=== PATIENT | male | born 1950 | race Caucasian/White ===

== ENCOUNTER 2018-12-18 09:52 | Inpatient (IN) | payer OTHER ==
[~2018-12-18] VITALS: Ht 177.8 cm; Wt 87.3 kg
[2018-12-18] MEDS ORDERED: SODIUM CHLORIDE 0.9% 1000ML 1,000 ML IV STA (10:09)
[2018-12-18 10:33] LABS: BASOPHILS # (AUTO) 0.1 (0.0-0.1); BASOPHILS % 0.7 % (0.0-1.0); HEMATOCRIT 21.7 % (38.2-49.6); LYMPHOCYTES # (AUTO) 0.7 (1.0-3.2); LYMPHOCYTES % 9.5 % (18.0-39.1); MEAN CORPUSCULAR HEMOGLOBIN 20.5 pg (28-32); MEAN CORPUSCULAR HGB CONC 27.6 g/dL (31-35); MEAN CORPUSCULAR VOLUME 74.1 fL (81-99); MONOCYTES # (AUTO) 0.3 (0.2-0.8); MONOCYTES % 3.9 % (4.4-11.3); NEUTROPHILS # (AUTO) 6.4 (2.1-6.9); NEUTROPHILS % 84.8 % (38.7-80.0); PLATELET COUNT 240 x10e3/uL (140-360); RED BLOOD COUNT 2.93 x10e6/uL (4.3-5.7); RED CELL DISTRIBUTION WIDTH 17.2 % (11.7-14.4)
[2018-12-18 10:34] LABS: INR 1.47; PROTHROMBIN TIME 18.4 seconds (11.9-14.5)
[2018-12-18 10:35] LABS: PARTIAL THROMBOPLASTIN TIME 30.3 seconds (23.8-35.5)
[2018-12-18 10:55] LABS: ALANINE AMINOTRANSFERASE 12 IU/L (0-55); ALBUMIN 3.1 g/dL (3.5-5.0); ALBUMIN/GLOBULIN RATIO 0.9 (0.8-2.0); ALKALINE PHOSPHATASE 68 IU/L (40-150); ANION GAP 11.6 mmol/L (8-16); BLOOD UREA NITROGEN 19 mg/dL (7-26); BUN/CREATININE RATIO 13 (6-25); CALCIUM 8.6 mg/dL (8.4-10.2); CARBON DIOXIDE 23 mmol/L (22-29); CHLORIDE 105 mmol/L (98-107); CREATINE KINASE 129 IU/L (30-200); CREATININE, SERUM 1.47 mg/dL (0.72-1.25); EST GLOMERULAR FILTRATION RATE 48 ML/MIN (60-); GLUCOSE 103 mg/dL (74-118); POTASSIUM 4.6 mmol/L (3.5-5.1); SODIUM 135 mmol/L (136-145)
--- NOTE | 2018-12-18 10:58 | Diagnostic Imaging Report ---
History:Fall, syncope Comparison studies:None Technique: Axial images were obtained from the skull base to the vertex. Coronal and sagittal images reconstructed from the axial data. Intravenous contrast: None Dose modulation, iterative reconstruction, and/or weight based adjustment of the mA/kV was utilized to reduce the radiation dose to as low as reasonably achievable. Findings: Scalp/skull: Right frontal scalp thickening, no fracture. Extra-axial spaces: No masses. No fluid collections. Brain sulci: Mildly prominent. Ventricles: Mild compensatory dilatation. No hydrocephalus. Parenchyma: Cortical-based hypodensity at the right inferior paracentral lobule, right insula, left inferior occipital temporal gyrus and right anterior lingular gyrus with associated volume loss, secondary to remote insult. Few hypodensities in the supratentorial white matter are small vessel ischemic changes. No masses, hemorrhage, acute or chronic cortical vascular insults. Sellar/suprasellar region: No abnormalities. Craniocervical junction: Patent foramen magnum. No Chiari one malformation. Incidental findings: Atherosclerotic calcifications in the carotid siphons . Impression: No acute intracranial abnormalities. Right frontal scalp thickening, could related to small soft tissue contusion. Chronic findings: 1. Chronic infarct in the right MCA and bilateral BELT WEAVER distribution as described above. 2. Mild generalized volume loss. 3. Mild supratentorial white matter small vessel ischemic changes. Signed by: DR Dariel Esparza M.D. on 12/18/2018 10:55 AM
--- NOTE | 2018-12-18 11:02 | Diagnostic Imaging Report ---
History: Fall, syncope Comparison studies: None Technique: Axial images were obtained through the cervical region.. Coronal and sagittal images reconstructed from the axial data.. Intravenous contrast: None Dose modulation, iterative reconstruction, and/or weight based adjustment of the mA/kV was utilized to reduce the radiation dose to as low as reasonably achievable. Findings: Fractures: None. Soft tissues: No gross paraspinal abnormalities. Atherosclerotic calcifications of the carotid bulbs Atlantoaxial articulation: Degenerative changes without acute abnormality. Alignment: Normal lordosis. No scoliosis. Cervicomedullary junction: No abnormalities. The foramen magnum is patent. Vertebrae: No infection or neoplasm. Degenerative changes: Mild degenerative right foraminal narrowing at C2-3 and mild degenerative bilateral foraminal narrowing at C5-6. Spinal canal grossly patent. IMPRESSION: 1. No acute cervical spine abnormalities. 2. Cannot exclude ligament, spinal cord and or vascular abnormalities on the basis of this examination. Signed by: DR Dariel Esparza M.D. on 12/18/2018 10:58 AM
[2018-12-18 11:16] LABS: THYROID STIMULATING HORMONE 1.246 uIU/mL (0.350-4.940)
[2018-12-18 11:48] LABS: COLOR,URINE YELLOW (YELLOW)
[2018-12-18 11:49] LABS: BILIRUBIN,URINE NEGATIVE (NEGATIVE); CLARITY,URINE CLEAR (CLEAR); KETONES,URINE NEGATIVE (NEGATIVE); LEUKOCYTE ESTERASE ,URINE NEGATIVE (NEGATIVE); NITRITE,URINE NEGATIVE (NEGATIVE); PROTEIN,URINE DIPSTICK NEGATIVE (NEGATIVE); URINE UROBILINOGEN 0.2 mg/dL (0.2 - 1)
[2018-12-18] MEDS ORDERED: PANTOPRAZOLE 40 MG 10ML VIAL IV ONE (11:49)
[2018-12-18 11:54] LABS: EPITHELIAL CELLS,URINE RARE /LPF
--- OUTSIDE RECORDS SUMMARY | 2018-12-18 11:59 | XMS REPORT ---
Author [facility] Address Unknown Phone Unavailable Care Team Providers Care Oil Well Logger Name Role Phone Vijay DANIELS Unavailable Unavailable Problems This patient has no known problems. Allergies, Adverse Reactions, Alerts This patient has no known allergies or adverse reactions. Medications This patient has no known medications. Results Test Description Test Time Test Comments Text Results Atomic Results Result Comments CT CERVICAL SPINE WO 2018-12-18 10:55:00 [place] [address] Patient Name: DAYAN HAGAN MR #: [id number] : 1950 Age/Sex: 68/M Req #: [id number] Adm Physician: Ordered by: JOSE DANIELS MD Report #: [id number] Location: ER Room/Bed: Procedure: [id number] CT/CT CERVICAL SPINE WO Exam Date: 12/18/18 Exam Time: 1000 REPORT STATUS: Signed History: Fall, syncope Comparison studies: None Technique: Axial images were obtained through the cervical region.. Coronal and sagittal images reconstructed from the axial data.. Intravenous contrast: None Dose modulation, iterative reconstruction, and/or weight based adjustment of the mA/kV was utilized to reduce the radiation dose to as low as reasonably achievable. Findings: Fractures: None. Soft tissues: No gross paraspinal abnormalities. Atherosclerotic calcifications of the carotid bulbs Atlantoaxial articulation: Degenerative changes without acute abnormality. Alignment: Normal lordosis. No scoliosis. Cervicomedullary junction: No abnormalities. The foramen magnum is patent. Vertebrae: No infection or neoplasm. Degenerative changes: Mild degenerative right foraminal narrowing at C2-3 and mild degenerative bilateral foraminal narrowing at C5-6. Spinal canal grossly patent. IMPRESSION: 1. No acute cervical spine abnormalities. 2. Cannot exclude ligament, spinal cord and or vascular abnormalities on the basis of this examination. Signed by: DR Dariel Esparza M.D. on 12/18/2018 10:58 AM Dictated By: DARIEL GOMEZ MD 105 Transcribed By: MIN on 12/18/18 105 COPY TO: JOSE DANIELS MD CT BRAIN WO 2018-12-18 10:48:00 [place] [address] Patient Name: DAYAN HAGAN MR #: [id number] : 1950 Age/Sex: 68/M Req #: [id number] Adm Physician: Ordered by: JOSE DANIELS MD Report #: [id number] Location: ER Room/Bed: Procedure: [id number] CT/CT BRAIN WO Exam Date: 12/18/18 Exam Time: 1000 REPORT STATUS: Signed History:Fall, syncope Comparison studies:None Technique : Axial images were obtained from the skull base to the vertex. Coronal and sagittal images reconstructed from the axial data. Intravenous contrast: None Dose modulation, iterative reconstruction, and/or weight based adjustment of the mA/kV was utilized to reduce the radiation dose to as low as reasonably achievable. Findings: Scalp/skull: Right frontal scalp thickening, no fracture. Extra-axial spaces: No masses. No fluid collections. Brain sulci: Mildly prominent. Ventricles: Mild compensatory dilatation. No hydrocephalus. Parenchyma: Cortical-based hypodensity at the right inferior paracentral lobule, right insula, left inferior occipital temporal gyrus and right anterior lingular gyrus with associated volume loss, secondary to remote insult. Few hypodensities in the supratentorial white matter are small vessel ischemic changes. No masses, hemorrhage, acute or chronic cortical vascular insults. Sellar/suprasellar region: No abnormalities. Craniocervical junction: Patent foramen magnum. No Chiari one malformation. Incidental findings: Atherosclerotic calcifications in the carotid siphons . Impression: No acute intracranial abnormalities. Right frontal scalp thickening, could related to small soft tissue contusion. Chronic findings: 1. Chronic infarct in the right MCA and bilateral INFORMATION TECH distribution as described above. 2. Mild generalized volume loss. 3. Mild supratentorial white matter small vessel ischemic changes. Signed by: DR Dariel Esparza M.D. on 12/18/2018 10:55 AM Dictated By: DARIEL GOMEZ MD [id number] Transcribed By: MIN on 12/18/18 1057 COPY TO: JOSE DANIELS MD
[2018-12-18] MEDS ORDERED: ONDANSETRON HCL INJ 2MG/ML 2ML 2 MG/ML VIAL IV PRN (12:00)
[2018-12-18 12:50] VITALS: BP 173/77
--- NOTE | 2018-12-18 12:54 | Diagnostic Imaging Report ---
EXAM: CHEST 2 VIEWS DATE: 12/18/2018 10:09 AM INDICATION:Shortness of breath, syncope COMPARISON: None FINDINGS: Lines and tubes: None Heart size normal. No focal pulmonary opacity, pleural effusion or pneumothorax. The lungs are hyperinflated. Mild scarring or atelectasis at the lung bases. Upper abdomen unremarkable. A moderate-sized hiatus hernia is noted behind the heart. No acute bony abnormality. IMPRESSION: No evidence for acute disease. Hyperinflation of the lungs may reflect chronic or reactive airway disorder. Signed by: Dr. Simone Brandt M.D. on 12/18/2018 12:51 PM
[2018-12-18] MEDS ORDERED: WARFARIN SODIUM10 MG PO (14:05)
[2018-12-18] MEDS ORDERED: PRAVASTATIN SOD40 MG PO (14:05)
--- NOTE | 2018-12-18 14:06 | NUR ---
HOME MEDS REVIEWED NOW. BROUGHT CONTAINERS FROM HOME
[2018-12-18] MEDS ORDERED: SODIUM CHLORIDE 0.9% 250ML 500 ML ONE (14:12)
--- NOTE | 2018-12-18 14:30 | NUR ---
blood transfusion now started. verified with erick rascon at bedside
--- NOTE | 2018-12-18 15:14 | NUR ---
spoke to md gorman regarding pt c/o pain to left ankle . new orders received
[2018-12-18] MEDS: ACETAMINOPHEN/CODEINE 300MG - 30MG TAB PO PRN ×2 (15:39→21:52)
[2018-12-18 15:54] VITALS: BP 133/63
--- NOTE | 2018-12-18 18:20 | NUR ---
2ND UNIT OF BLOOD JUST STARTED . VERIFIED WITH HERLINDA VORA AT BEDSIDE.
--- NOTE | 2018-12-18 19:10 | NUR ---
Report taken from erick Maloney.walking rounds done.blood is transfusing.stable condition.
[2018-12-18 20:00] VITALS: BP 136/71
--- NOTE | 2018-12-18 20:10 | NUR ---
PT IS GETTING BLOOD TRANSFUSION.SO CAN NOT DRAW BLOOD FOR CARDIAC MARKERS.
[2018-12-18 21:00] VITALS: BP 130/69
--- NOTE | 2018-12-18 21:00 | NUR ---
Assessment done.no resp.distress.v/s stable.blood is transfusing.ambulates.voided.bed locked and in lowest position. phone and call light within reach.instructed to call for assistance as needed.
--- NOTE | 2018-12-18 21:40 | NUR ---
Blood transfusion completed.pt tolerated well.no reaction noted.stable condition.
[2018-12-19] VITALS (8 sets, daily range): BP systolic 107–134; BP diastolic 59–70
[2018-12-19 00:28] LABS: HEMATOCRIT 28.9 % (38.2-49.6); HEMOGLOBIN 8.1 g/dL (14.0-18.0)
--- NOTE | 2018-12-19 00:28 | NUR ---
Blood drawn and sent to the lab .patient is tolerated well.but pt is unhappy with the lab works in the night.
--- NOTE | 2018-12-19 00:32 | Consultation ---
DATE OF CONSULTATION: 12/18/2018 HISTORY OF PRESENT ILLNESS: This is a 68 years old gentleman, who apparently was admitted to the hospital and presented to the hospital because of significant iron deficiency anemia and feeling weak and also he was having some syncopal episodes. He was found to have a hemoglobin of 6.0 with a MCV of 74 and he denies any abdominal pain, nausea, or vomiting. He had a CT of the head, which shows a chronic infarct of the right MCA and otherwise is unremarkable. OTHER MEDICAL PROBLEM: Significant for history of CVA and history of DVT. Apparently because of that reason, he was on Coumadin at home. ALLERGIES: HIS ALLERGIES ARE NONE. SOCIAL HISTORY: Denies alcohol use. FAMILY HISTORY: Noncontributory. REVIEW OF SYSTEMS: Denies any chest pain at this point. Denies any shortness of breath. Denies any dysphagia, odynophagia. Denies any dysuria, hematuria, or any kind of syncopal episode. PHYSICAL EXAMINATION: GENERAL: The patient is awake, alert, appears to be stable, not in acute distress at this point. VITAL SIGNS: Afebrile currently with stable vital signs. HEENT: Head is normocephalic, atraumatic. Sclerae are anicteric. NECK: Supple. HEART: Regular. ABDOMEN: Soft. There is no distension at this point. It is nontender. EXTREMITIES: There is no clubbing Muscular is supple heart is regular. ABDOMEN: Soft. There is tenderness point is nontender. EXTREMITIES: There is no clubbing. LAB VALUES: PT of 18.4, INR 1.47, , and LFTs are normal, hemoglobin is 6, hematocrit 21.7 with MCV of 74.1. IMPRESSION: 1. Severe iron deficiency anemia, rule out possibility of occult GI blood loss. Apparently, his last colonoscopy was about 10 years ago. 2. History of deep venous thrombosis and history of cerebrovascular accident, and hold anticoagulation for now. Transfuse bright red blood cells. We will do EGD and colonoscopy later this week when the PT is normalized, possibly on . Omid Pruitt MD DHAugie/MODL /[id number] cc: Zana Cook MD
[2018-12-19 00:44] LABS: CREATINE KINASE 155 IU/L (30-200)
--- NOTE | 2018-12-19 06:49 | NUR ---
Report given to the oncoming rn.walking rounds done.stable condition.
--- NOTE | 2018-12-19 07:00 | NUR ---
Report given to the oncoming rn.walking rounds done.stable condition.
[2018-12-19 07:13] LABS: BASOPHILS % 0.7 % (0.0-1.0); EOSINOPHILS # (AUTO) 0.2 (0.0-0.4); EOSINOPHILS % 2.9 % (0.0-6.0); HEMATOCRIT 27.1 % (38.2-49.6); HEMOGLOBIN 7.8 g/dL (14.0-18.0); INR 1.54; LYMPHOCYTES # (AUTO) 1.4 (1.0-3.2); LYMPHOCYTES % 22.8 % (18.0-39.1); MEAN CORPUSCULAR HEMOGLOBIN 22.5 pg (28-32); MEAN CORPUSCULAR HGB CONC 28.8 g/dL (31-35); MEAN CORPUSCULAR VOLUME 78.3 fL (81-99); MONOCYTES # (AUTO) 0.5 (0.2-0.8); MONOCYTES % 8.3 % (4.4-11.3); NEUTROPHILS # (AUTO) 3.8 (2.1-6.9); NEUTROPHILS % 64.6 % (38.7-80.0); PLATELET COUNT 162 x10e3/uL (140-360); PROTHROMBIN TIME 19.1 seconds (11.9-14.5); RED BLOOD COUNT 3.46 x10e6/uL (4.3-5.7)
[2018-12-19 07:24] LABS: CREATINE KINASE MB 1.1 ng/mL (0-5.0)
[2018-12-19 07:42] LABS: ALBUMIN 2.6 g/dL (3.5-5.0); ALBUMIN/GLOBULIN RATIO 0.9 (0.8-2.0); ANION GAP 11.1 mmol/L (8-16); CALCIUM 8.2 mg/dL (8.4-10.2); CHOL/HDL RATIO 2.2 (3.9-4.7); CREATININE, SERUM 1.35 mg/dL (0.72-1.25); POTASSIUM 5.1 mmol/L (3.5-5.1)
[2018-12-19] MEDS: PANTOPRAZOLE 40 MG 10ML VIAL IV SCH (08:41)
[2018-12-19 09:54] LABS: THYROID STIMULATING HORMONE 2.071 uIU/mL (0.350-4.940)
[2018-12-19 10:11] LABS: FOLATE 5.1 ng/mL (7.0-15.4)
--- NOTE | 2018-12-19 10:16 | NUR ---
PT OFF UNIT FOR CT VIA WHEEL CHAIR
--- NOTE | 2018-12-19 11:08 | NUR ---
WOUND CARE CONSULTATION - INITIAL EVALUATION Patient admitted from home to ER for Anemia, Dyspnea, Syncope with Fall. WBC5.93 HGB7.8 HCT27.1 GLU84 Alb 2.6 Wound Care Consulted for Left Medial Ankle Ulcer Evaluation PATIENT VISIT: Patient ambulatory, AAOX4, Calm and Cooperative. Presents with ulceration to left medial malleolus that is recurrent, " it opens and it resurfaces from time to time" Spouse at bedside. Ulceration Irregular, partial thickness, very tender to touch and describes sporadic pain as lightning bolts. Area does not appear to be infected. Scabbed ulceration with periwound pink scarring 1cm. Wound size 3.5x2.5x0.4cm Dry wound bed granulated 100%. Strong Pedal pulses. No Swelling No Redness. Ramesh Score 21 Conservative PUP Active IMPRESSION: -Left Medial Malleolus- Venous Stasis Ulcer ( Non-Healing/ Recurrent) Present On Admission. RECOMMENDATION: 1. Left Medial Malleolus- Venous Stasis Ulcer: - Gently cleanse with NS and 4x4 gauze - Apply Venelex and Cover with [employer] then Cover with 4x4 gauze and Secure with Light Kerlix Wrap Daily. 2. Continue Conservative PUP. Thank you for consulting with Wound Care. Addendum: 12/19/18 at 1119 by José Miguel Bhardwaj RN Amended: Links added.
--- NOTE | 2018-12-19 11:28 | Consultation ---
DATE OF CONSULTATION: 12/19/2018 Cardiology Consultation CONSULTING PHYSICIAN: Carlos Brizuela MD, interventional Cardiology. REASON FOR CONSULTATION: Syncope. HISTORY OF PRESENT ILLNESS: Mr. Hale is a 68-year-old man with history of DVT and CVA for which he has been reportedly on Coumadin long-term for various decades. He recently lost his primary care provider and had not re-established care. He has continued however to take his Coumadin on his own without any INR checks. He has reportedly had several spells this last couple of weeks while standing or walking. He feels short of breath, lightheaded and this has followed at times with loss of consciousness and falls. Most recent episode occurred yesterday while patient was ambulating. Initial hemoglobin on arrival was 6. His arrival INR however was 1.4. His serial cardiac enzymes were negative. BNP was 45. He denies any chest pain. EKG reveals normal sinus rhythm, heart rate 95, QRS of 88, QT corrected of 429, otherwise normal EKG with minor nonspecific repolarization abnormality. REVIEW OF SYSTEMS: A 12-system review is negative except for as noted above. The patient denies any gross bleeding. PAST MEDICAL HISTORY: Reportedly dyslipidemia for which he has been on pravastatin in addition to CVA and history of DVT. ALLERGIES: NO KNOWN DRUG ALLERGIES. SOCIAL HISTORY: No alcohol use. Former smoker. No drug use. FAMILY HISTORY: Noncontributory. PHYSICAL EXAMINATION: VITAL SIGNS: Temperature 98.2, heart rate 67, respiratory rate 16, blood pressure 127/67, O2 saturation 95% on room air. GENERAL: In no acute distress, alert. HEENT: Abrasions to right face, facial aspect and mild periorbital edema. NECK: No JVD. No carotid bruits. CHEST: Clear to auscultation. CARDIOVASCULAR: Regular rate and rhythm. Normal S1, S2. No S3, no S4. No murmurs, no rubs. ABDOMEN: Soft, nontender. EXTREMITIES: Trace edema. Warm distal extremities. CARDIOVASCULAR MEDICATIONS: Reviewed. Protonix 40 mg daily IV. LABORATORY STUDIES: Reviewed. Sodium 136, potassium 5.1, chloride 107, bicarbonate 23, BUN 16, creatinine 1.35, glucose 84, calcium 8.2. Negative cardiac enzymes x3. AST 9, ALT 58, total bilirubin is 14. Transferrin 312, percent saturation is 4, iron level is low at 19. TSH is 2.02. LDL is 32, HDL is 38, triglycerides 70. Most recent INR 1.5. Most recent hemoglobin 7.8, white blood count 5.9, platelet 162. The patient is status post [address] head chronic infarct of the right MCA and bilateral DEPUTY CORONER distribution as described. General generalized volume loss, supratentorial white matter small vessel ischemic changes noted. Cervical spine CT showed no acute cervical spine abnormalities, cannot exclude ligament, spinal cord or vascular abnormalities on the basis of this exam. Chest x-ray, no evidence of acute disease, hyperinflation of lungs, may reflect chronic or reactive airway disorder. ASSESSMENT: 1. Symptomatic anemia. 2. Chronic anticoagulation with warfarin with no regular recent followup. 3. History of DVT reported. 4. History of cerebrovascular accident with above-noted CT findings. 5. Dyslipidemia. 6. Chest x-ray findings raising concern of underlying COPD in the patient with history of smoking. RECOMMENDATIONS: 1. Agree with GI evaluation. 2. Obtain echocardiogram. 3. Please keep on telemetry so far remains in sinus rhythm. The patient does not report a prior history of atrial fibrillation or atrial flutter. However, multifocal old infarcts raise some concern. Obtain echo and carotid ultrasounds. 4. Fecal occult blood test advised. Carlos Brizuela MD AFBalbir/ROSARIO /[id number]
--- NOTE | 2018-12-19 11:40 | Diagnostic Imaging Report ---
TECHNIQUE: CT of the chest, abdomen and pelvis without intravenous contrast. INDICATION: Anemia, dyspnea, status post fall. COMPARISON: Chest radiograph 12/18/2018. TECHNIQUE: Chest, Abdomen and pelvis were scanned utilizing a multidetector helical scanner from the thoracic inlet to the pubic symphysis without administration of IV or oral contrast. Coronal and sagittal reformations were obtained. Routine protocol was performed. Lack of intravenous contrast limits sensitivity for evaluation of vascular or visceral structures. COMPLICATIONS: None RADIATION DOSE: Total DLP: 830.4 mGy*cm Dose modulation, iterative reconstruction, and/or weight based adjustment of the mA/kV was utilized to reduce the radiation dose to as low as reasonably achievable. FINDINGS: LINES AND TUBES: None LUNGS AND AIRWAYS: The central airways are patent. There are mild centrilobular and paraseptal emphysematous changes. There are mild bilateral peripheral interstitial opacities, most pronounced in the lower lobes. There is a 3 mm solid subpleural nodule in the right middle lobe on series 4, image 94. There is a 3 mm likely partially calcified solid nodule in the right lower lobe on image 59. There is a rounded consolidative opacity measuring up to 3.9 cm in the right lower lobe which distorting the adjacent pleural fat, for example on series 2, image 50. There is associated volume loss. There is somewhat nodular-appearing atelectatic changes in the left lower lobe along the major fissure at the base, as seen on series 4, image 97 and coronal series 301, image 78. PLEURA: The pleural spaces are clear. HEART AND MEDIASTINUM: The thyroid gland is normal. No significant mediastinal, hilar or axillary lymphadenopathy is seen. Small nonspecific mediastinal lymph nodes, for example measuring 6 mm in the AP window. No cardiomegaly or pericardial effusion. Coronary atherosclerosis. Scattered atherosclerotic calcifications of the thoracic aorta and branch vessels. Large hiatal hernia. HEPATOBILIARY: No focal hepatic lesions. No biliary ductal dilatation. Cholelithiasis without CT evidence of cholecystitis. SPLEEN: No splenomegaly. There is a somewhat nodular contour to the spleen with internal calcification, for example on series 2, image 62, which may reflect sequela of prior trauma. PANCREAS: No focal masses or ductal dilatation. Punctate calcifications of the pancreatic head may reflect sequela of prior pancreatitis. ADRENALS: No adrenal nodules. KIDNEYS/URETERS: No hydronephrosis, stones, or solid mass lesions. PELVIC ORGANS/BLADDER: The prostate is enlarged, measuring up to 5 cm. PERITONEUM / RETROPERITONEUM: No free air or fluid. LYMPH NODES: No lymphadenopathy. VESSELS: Extensive atherosclerotic changes of the abdominal aorta and branch vessels. There is an infrarenal abdominal aortic aneurysm, measuring up to 3 cm at the aortic bifurcation. There are bilateral common iliac artery aneurysms, measuring up to 3.5 cm on the right and 3 cm on the left. There are bilateral varicose veins in the upper pubic soft tissues GI TRACT: No distention or wall thickening. BONES AND SOFT TISSUES: Mild anterior wedge compression deformity at T7. No evidence of acute displaced fracture. IMPRESSION: Mild anterior wedge compression deformity of T7, age indeterminate. Suggest correlation for point tenderness at this location. Rounded consolidative opacity with associated volume loss in the right lower lobe. This may represent an area of nodular atelectasis. Additional likely nodular-appearing atelectasis along the left major fissure at the left lung base. Recommend follow-up chest CT in 3 months to exclude underlying lung lesion. Mild emphysematous changes of the lungs. Mild peripheral and basilar predominant interstitial opacities, which may reflect early fibrotic changes. Infrarenal abdominal aortic aneurysm at the aortic bifurcation measuring up to 3 cm with extension into the bilateral common iliac arteries, measuring up to 3.5 cm on the right and 3 cm on the left. Suggest dedicated CTA of the abdomen and pelvis for further evaluation. Large hiatal hernia. Signed by: Dr. Andrew Kaminski MD on 12/19/2018 11:36 AM
--- NOTE | 2018-12-19 11:47 | NUR ---
PAGED MD HASTINGS REGARDING RESULTS OF CT ABD . AWAITING FOR CALL BACK
--- NOTE | 2018-12-19 11:53 | NUR ---
NOTIFIED MD HASTINGS REGARDING IMPRESSION OF ABD/PELVIS CT STATES TO MAKE SURE PT DRINKS ALOT OF FLUIDS TO IMPROVE CREATININE AND GET AN ORDER FOR A BMP IN THE AM ORDERS RECEIVED
--- NOTE | 2018-12-19 13:09 | NUR ---
notified md gorman regarding fluid pocket to right eye increasing in size. states to leave it alone, and he will look at it tomorrow
--- NOTE | 2018-12-19 15:35 | History and Physical ---
PRIMARY CARE PHYSICIAN: Dr. Lucretia Arredondo. MUSHROOM FARMER: Dr. Omid Pruitt. CHIEF COMPLAINT: 1. Status post syncopal episode. 2. Status post blood transfusion. 3. Severe symptomatic anemia. HISTORY OF PRESENT ILLNESS: The patient is a 68-year-old male with recurrent lower extremity DVT, on lifetime anticoagulant therapy, although his INR is 1.54. The patient came in with significant anemia. His hemoglobin and hematocrit were 6.0 and 21.7. The patient is admitted for further evaluation. He does have chronic kidney disease, however, not enough to contribute to the patient's anemia. The patient needs working up for GI bleed pending. PAST MEDICAL HISTORY: 1. Recurrent dizziness and fall. 2. Chronic kidney disease stage 2. 3. Lower extremity DVT, on lifetime anticoagulant therapy. PAST SURGICAL HISTORY: Circumcision. SOCIAL HISTORY: The patient does not smoke or use alcohol. No recreational drug use. ALLERGIES: NO KNOWN ALLERGIES. HOME MEDICATIONS: The patient was on pravastatin and warfarin 10 mg daily. PHYSICAL EXAMINATION: VITAL SIGNS: Temperature is 98, blood pressure 136/71, pulse rate is 88, respirations 20. GENERAL: The patient is not in acute distress. HEENT: Swelling of the right side facial area where the patient fell. There is no gross bleed. NECK: Supple. PULMONARY: Clear. CARDIOVASCULAR: Regular rate and rhythm. ABDOMEN: Soft, nontender, nondistention. EXTREMITIES: No gross cyanosis or edema. NEUROLOGIC: No gross focal deficit. LABORATORY DATA: Sodium 135, potassium 4.6, chloride 105, bicarb 23, BUN is 19, creatinine 1.4, glucose is 103. WBC is 7.5, hemoglobin 6, hematocrit 21.7, and platelet is 240. Urinalysis is unremarkable, there was no hematuria. Coagulation; INR was 1.47-1.54. CT scan of the brain was negative, there was no bleed. There is chronic infarct in the right MCA and the bilateral LIFE TEACHER distribution. Cervical spine CT scan, otherwise unremarkable, no acute abnormality. Chest x-ray show no acute problem. IMPRESSION: 1. Symptomatic anemia with chronic bleed, most likely. 2. Status post syncopal episode, multifactorial, could be secondary to severe anemia. 3. Deep venous thrombosis, on lifetime anticoagulant therapy. The patient's INR is subtherapeutic. PLAN: Consultation with Dr. Omid Pruitt. CT chest, abdomen and pelvis without contrast for now. Stool for occult blood. Iron profile. B12 and folic acid. Hold off on anticoagulation for now. MD WADE Grande/ROSARIO /[id number]
[2018-12-20] VITALS (7 sets, daily range): BP systolic 115–133; BP diastolic 57–70
--- NOTE | 2018-12-20 00:10 | NUR ---
Dressing done to left ankle.no drainage noted.assessment done.no resp.distress.no pain voiced.bed locked and in lowest position.phone and call light within reach.instructed to call for assistance as needed.
[2018-12-20] MEDS ORDERED: BISACODYL 5 MG TAB EC PO NR (06:30)
[2018-12-20 06:35] LABS: BASOPHILS # (AUTO) 0.1 (0.0-0.1); BASOPHILS % 0.7 % (0.0-1.0); EOSINOPHILS # (AUTO) 0.2 (0.0-0.4); EOSINOPHILS % 2.7 % (0.0-6.0); HEMATOCRIT 26.7 % (38.2-49.6); LYMPHOCYTES # (AUTO) 1.3 (1.0-3.2); LYMPHOCYTES % 16.6 % (18.0-39.1); MEAN CORPUSCULAR HEMOGLOBIN 22.6 pg (28-32); MEAN CORPUSCULAR VOLUME 75.4 fL (81-99); MONOCYTES # (AUTO) 0.5 (0.2-0.8); MONOCYTES % 7.2 % (4.4-11.3); NEUTROPHILS # (AUTO) 5.4 (2.1-6.9); NEUTROPHILS % 72.4 % (38.7-80.0); PLATELET COUNT 176 x10e3/uL (140-360); RED BLOOD COUNT 3.54 x10e6/uL (4.3-5.7); RED CELL DISTRIBUTION WIDTH 18.2 % (11.7-14.4)
[2018-12-20 06:53] LABS: ANION GAP 10.2 mmol/L (8-16); CALCIUM 8.3 mg/dL (8.4-10.2); CREATININE, SERUM 1.21 mg/dL (0.72-1.25); POTASSIUM 4.2 mmol/L (3.5-5.1)
[2018-12-20] MEDS ORDERED: PEG (High)/E-LYTE SOLN 4,000 ML BTL PO NR (07:30)
--- NOTE | 2018-12-20 07:45 | NUR ---
BEDSIDE REPORT RECEIVED. PT RESTING QUIETLY. AT BEDSIDE
--- NOTE | 2018-12-20 08:03 | NUR ---
Report given to the oncoming rn.walking rounds done.stable condition.
[2018-12-20] MEDS: FOLIC ACID 1 MG TAB PO SCH (09:00)
[2018-12-20] MEDS: PANTOPRAZOLE 40 MG 10ML VIAL IV SCH (09:00)
[2018-12-20] MEDS ORDERED: BALSAM PERU/CASTOR OIL 60 GM OINT...G. TP SCH (09:00)
[2018-12-20] MEDS: IRON-VITAMIN-MINERAL CAPSULE PO SCH ×2 (09:00→18:37)
[2018-12-20] MEDS: THIAMINE HCL 100 MG TAB PO SCH (09:00)
[2018-12-20] MEDS: CYANOCOBALAMIN INJ 1,000 MCG/ML VIAL IM SCH (09:55)
--- NOTE | 2018-12-20 10:00 | NUR ---
PT RESTING RESP EVEN AND UNLABORED. AT BEDSIDE
--- NOTE | 2018-12-20 14:29 | Progress Note ---
DATE: 12/20/2018 Cardiology Progress Note SUBJECTIVE: Denies any chest pain or shortness of breath discussed carotid artery stenosis by Doppler. The patient state that he is aware of this and has been following in the past with his previous doctors prior to discontinuing followup. We have also discussed aortic and iliac dilatation concerning for an aneurysmal versus ectatic findings and undergoing concerns with lack of regular followup for his INR checks and presence of anemia. He is undergoing GI evaluation right now. We will await results. OBJECTIVE: VITAL SIGNS: Temperature 99.1, heart rate 64, blood pressure 115/67, respiratory rate 18, and O2 sat 100%. GENERAL: No acute distress, alert. NECK: No JVD. CHEST: Clear to auscultation. CARDIOVASCULAR: Regular rate and rhythm. Normal S1, S2. ABDOMEN: Soft. EXTREMITIES: Trace edema. CARDIOVASCULAR MEDICATIONS: Reviewed. LABORATORY DATA: Studies reviewed. Sodium 132, potassium 4.2, chloride 102, bicarbonate 24, BUN 21, creatinine 1.2, glucose 90. Blood loss 7.5, hemoglobin 8, platelets 176. INR 1.5. AST 14, ALT 9, alkaline phosphatase 58. ASSESSMENT: A 68-year-old man presenting with symptomatic anemia in the setting of chronic anticoagulation. 1. History of reported DVT on chronic anticoagulation. 2. Prior cerebrovascular accident, old. 3. Carotid disease 50% to 69% to the right by Doppler findings. 4. Aortic and iliac dilatation/aneurysm. 5. Dyslipidemia. 6. Hypertension. RECOMMENDATIONS: 1. Monitor H and H. 2. Agree with anemia evaluation. 3. Preserved left systolic function on echocardiogram. 4. Overall await studies we further discussed. Consider in up titration, titrating statin potency to moderate potency and assess tolerance given underlying peripheral vascular disease. Earlier today can consider possible carotid intervention for now. I will wait GI workup to discuss antiplatelet therapy and anticoagulation. MD BAR Vergara/ROSARIO /[id number]
--- NOTE | 2018-12-20 15:24 | NUR ---
Consent obtained at this time for EGD and colonoscopy procedure for tomorrow.
[2018-12-20] MEDS ORDERED: PEG (High)/E-LYTE SOLN 4,000 ML BTL PO ONE (15:30)
[2018-12-20] MEDS: BALSAM PERU/CASTOR OIL 60 GM OINT...G. TP SCH (20:59)
[2018-12-20] MEDS ORDERED: SODIUM CHLORIDE 0.9% 250ML 250 ML ONE (23:43)
[2018-12-21] VITALS (9 sets, daily range): BP systolic 126–134; BP diastolic 63–81
[2018-12-21] MEDS ORDERED: SODIUM CHLORIDE 0.9% 250ML 250 ML ONE (00:55)
--- NOTE | 2018-12-21 01:45 | NUR ---
2 units of FFP administered and completed
[2018-12-21 05:54] LABS: BASOPHILS % 0.6 % (0.0-1.0); EOSINOPHILS # (AUTO) 0.2 (0.0-0.4); EOSINOPHILS % 2.6 % (0.0-6.0); HEMATOCRIT 26.3 % (38.2-49.6); HEMOGLOBIN 7.6 g/dL (14.0-18.0); LYMPHOCYTES # (AUTO) 1.4 (1.0-3.2); LYMPHOCYTES % 20.7 % (18.0-39.1); MEAN CORPUSCULAR HEMOGLOBIN 22.6 pg (28-32); MEAN CORPUSCULAR HGB CONC 28.9 g/dL (31-35); MEAN CORPUSCULAR VOLUME 78.3 fL (81-99); MONOCYTES # (AUTO) 0.7 (0.2-0.8); NEUTROPHILS # (AUTO) 4.3 (2.1-6.9); NEUTROPHILS % 65.5 % (38.7-80.0); PLATELET COUNT 152 x10e3/uL (140-360); RED BLOOD COUNT 3.36 x10e6/uL (4.3-5.7); RED CELL DISTRIBUTION WIDTH 18.6 % (11.7-14.4)
[2018-12-21 06:12] LABS: ANION GAP 11.2 mmol/L (8-16); CALCIUM 8.3 mg/dL (8.4-10.2); CREATININE, SERUM 1.21 mg/dL (0.72-1.25); POTASSIUM 4.2 mmol/L (3.5-5.1)
[2018-12-21 06:14] LABS: INR 1.09; PROTHROMBIN TIME 14.6 seconds (11.9-14.5)
[2018-12-21] MEDS: IRON-VITAMIN-MINERAL CAPSULE PO SCH ×2 (09:00→18:14)
[2018-12-21] MEDS: PANTOPRAZOLE 40 MG 10ML VIAL IV SCH (09:00)
[2018-12-21] MEDS: CYANOCOBALAMIN INJ 1,000 MCG/ML VIAL IM SCH (09:00)
[2018-12-21] MEDS: FOLIC ACID 1 MG TAB PO SCH (09:00)
[2018-12-21] MEDS: THIAMINE HCL 100 MG TAB PO SCH (09:00)
--- NOTE | 2018-12-21 11:30 | NUR ---
Attempted to see pt for assessment. Pt currently in bathroom. CM will return at a later time.
--- NOTE | 2018-12-21 12:25 | NUR ---
Notified Dr. Sidhu regarding pt's R eye, red and swelling observed. New order for ABT eye drops received.
--- NOTE | 2018-12-21 12:55 | NUR ---
Pt off to procedure for this afternoon. Transferred via 2 assist, on stretcher.
[2018-12-21] MEDS: MOXIFLOXACIN HCL(OPTH) 3 ML BTL OP SCH ×3 (13:00→21:20)
--- NOTE | 2018-12-21 13:15 | NUR ---
CM returned to pt bedside for assessment. Pt is away for a procedure.
[2018-12-21] MEDS ORDERED: LIDOCAINE HCL 2% LOCAL INJ 5 ML SDV VIAL INJ ONE (14:26)
[2018-12-21] MEDS ORDERED: PROPOFOL IV EMULSION 10 MG/ML 50 ML VIAL ONE (14:26)
--- NOTE | 2018-12-21 14:45 | Progress Note ---
DATE: 12/21/2018 Medicine Progress Note I am covering for Dr. Cook. SUBJECTIVE: The patient is scheduled to have an EGD later today by GI. No overnight events. Discussed case with nursing staff. LABORATORY DATA: Lab findings show white count of 6.5, hemoglobin 7.6, hematocrit 26, platelets of 152. His chemistry; sodium 133, potassium 4.2 chloride 103 bicarb 26, anion gap of 11, BUN is 17, creatinine is 1.2, glucose is 84, calcium is 8.3. Urinalysis negative. MICROBIOLOGY: None. 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 At the consolidation opacities seen in the lung faulkner he has outpatient followup CT scan. PHYSICAL EXAMINATION: VITAL SIGNS: Temperature is 96.7, pulse 66, respiratory rate is 18, blood pressure 132/64, pulse ox 100% on room air. GENERAL: No acute distress. Alert and oriented x3. Cooperative on exam. HEENT: Head is normocephalic and atraumatic. Eyes; pupils are equal, round, and reactive to light bilaterally. Extraocular movements are intact bilaterally. Throat, no evidence of erythema or exudates in the posterior pharynx. Has poor dentition. NECK: Supple. Good range of motion. PULMONARY: Clear to auscultation bilaterally. No wheezing, no rales, no rhonchi, no crackles appreciated. CARDIOVASCULAR: Positive S1, S2. No murmurs, rubs, or gallops appreciated. ABDOMEN: Soft, nondistended, and nontender to palpation. Bowel sounds present. MUSCULOSKELETAL: Strength is 5/5 throughout. No evidence of any muscle deficits on examination. No weakness appreciated. NEUROLOGICAL: Cranial nerves II through XII grossly intact. No evidence of any neurological deficits on exam. SKIN: Intact. Warm to touch. Good cap refill. PSYCHIATRIC: Normal affect and mood. EXTREMITIES: No edema. Good range of motion throughout. IMPRESSION: 1. Gastrointestinal bleed anemia. 2. Syncopal episode, likely due to underlying anemia. 3. Anemia status post blood transfusion. 4. Carotid disease 50% to 69% on the right based on Doppler findings. PLAN: At this time, the patient is scheduled for EGD later today by GI. Hemoglobin is stable. We will get a.m. labs. Continue with Protonix. I read Cardiology's note and at this time, on the right side. In his note he states to consider possible carotid intervention now if the patient is okay with it. At this time, we will continue to monitor very closely and follow the recommendations by the consultants. MD IVELISES Retana/OSKARL /[id number]
--- NOTE | 2018-12-21 16:10 | Progress Note ---
DATE: 12/21/2018 Cardiology Progress Note SUBJECTIVE: Status post EGD and colonoscopy today finding Miller esophagus, colon polyps, sent for biopsy and nonbleeding ulcer. OBJECTIVE: VITAL SIGNS: Reviewed. Temperature 96.7, heart rate 66, blood pressure 132/64, respiratory rate 18, O2 saturation 100%, BMI 27. GENERAL: In no acute distress. CHEST: Clear to auscultation. CARDIOVASCULAR: Regular rate and rhythm. ABDOMEN: Soft. EXTREMITIES: Trace edema. SKIN: Intact. CARDIOVASCULAR MEDICATIONS: Reviewed. We will switch pravastatin to atorvastatin 40 mg at bedtime. Continue ferrous sulfate. LABORATORY DATA: Studies reviewed. Creatinine 1.2, hemoglobin 7.6, white blood cells 6.5, platelets 152. INR 1.09. ASSESSMENT: 1. 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 2. Carotid stenosis to the right ICA 50% to 69% by Doppler. 3. History of DVT, on chronic long-term anticoagulation with vitamin K antagonist. 4. Noncompliance with outpatient followup for medications in recent several months. 5. Dyslipidemia. 6. Anemia. 7. Miller esophagus. 8. Colon polyps, status post biopsies. 9. Ulcer, nonbleeding. RECOMMENDATIONS: 1. I will titrate statin potency to atorvastatin 40 mg at bedtime. 2. At a later date consider clopidogrel 75 mg daily and avoid NSAIDs/aspirin when it is possible once okay with GI, suspect at least a week on hold prior to initiation. 3. We will need close monitoring of H and H and ferrous sulfate as outpatient. 4. Further outpatient workup advised. MD BAR Vergara/ROSARIO /[id number]
[2018-12-21] MEDS ORDERED: MIDAZOLAM HCL 2 MG/2 ML VIAL ONE (19:36)
[2018-12-21] MEDS ORDERED: FENTANYL CITRATE/PF 100MCG/2 ML INJ ONE (19:36)
[2018-12-21] MEDS ORDERED: ATORVASTATIN 20 MG TAB PO SCH (21:00)
[2018-12-21] MEDS ORDERED: ATORVASTATIN 40 MG TAB PO SCH (21:00)
[2018-12-21] MEDS: BALSAM PERU/CASTOR OIL 60 GM OINT...G. TP SCH (21:20)
[2018-12-22] VITALS: BP 136/60
[2018-12-22 04:00] VITALS: BP 121/58
[2018-12-22 05:58] LABS: BASOPHILS # (AUTO) 0.1 (0.0-0.1); BASOPHILS % 0.7 % (0.0-1.0); HEMATOCRIT 27.7 % (38.2-49.6); HEMOGLOBIN 8.2 g/dL (14.0-18.0); LYMPHOCYTES # (AUTO) 1.3 (1.0-3.2); LYMPHOCYTES % 15.9 % (18.0-39.1); MEAN CORPUSCULAR HEMOGLOBIN 22.7 pg (28-32); MEAN CORPUSCULAR HGB CONC 29.6 g/dL (31-35); MEAN CORPUSCULAR VOLUME 76.5 fL (81-99); MONOCYTES # (AUTO) 0.6 (0.2-0.8); MONOCYTES % 7.4 % (4.4-11.3); NEUTROPHILS # (AUTO) 6.1 (2.1-6.9); NEUTROPHILS % 74.8 % (38.7-80.0); PLATELET COUNT 207 x10e3/uL (140-360); RED BLOOD COUNT 3.62 x10e6/uL (4.3-5.7); RED CELL DISTRIBUTION WIDTH 18.8 % (11.7-14.4)
[2018-12-22 06:19] LABS: ANION GAP 10.1 mmol/L (8-16); BLOOD UREA NITROGEN 17 mg/dL (7-26); BUN/CREATININE RATIO 15 (6-25); CALCIUM 8.5 mg/dL (8.4-10.2); CARBON DIOXIDE 24 mmol/L (22-29); CHLORIDE 102 mmol/L (98-107); CREATININE, SERUM 1.16 mg/dL (0.72-1.25); EST GLOMERULAR FILTRATION RATE > 60 ML/MIN (60-); GLUCOSE 85 mg/dL (74-118); POTASSIUM 4.1 mmol/L (3.5-5.1); SODIUM 132 mmol/L (136-145)
--- NOTE | 2018-12-22 07:14 | NUR ---
received pt lying in bed with eyes open and TV on. denies pain and sob at this time. at bedside. call light within reach and instructed to call for assistance.
[2018-12-22 07:54] VITALS: BP 129/58
[2018-12-22 08:03] VITALS: BP 129/58
[2018-12-22] MEDS: CYANOCOBALAMIN INJ 1,000 MCG/ML VIAL IM SCH (09:08)
[2018-12-22] MEDS: MOXIFLOXACIN HCL(OPTH) 3 ML BTL OP SCH ×2 (09:08→12:07)
[2018-12-22] MEDS: THIAMINE HCL 100 MG TAB PO SCH (09:08)
[2018-12-22] MEDS: PANTOPRAZOLE 40 MG 10ML VIAL IV SCH (09:08)
[2018-12-22] MEDS: IRON-VITAMIN-MINERAL CAPSULE PO SCH (09:08)
[2018-12-22] MEDS: FOLIC ACID 1 MG TAB PO SCH (09:08)
--- NOTE | 2018-12-22 12:01 | Progress Note ---
DATE: 12/21/2018 Cardiology Progress Note SUBJECTIVE: Denies any recurrent bleeding. Denies any chest pain or shortness of breath. Denies any new episodes of weakness, numbness, changes in speech, vision, or gait. OBJECTIVE: VITAL SIGNS: Temperature 97.4, heart rate 63, blood pressure 129/58, respiratory rate 18, and O2 saturation 97% on room air. BMI 27.5. GENERAL: In no acute distress. Alert and oriented x3. NECK: No JVD. Right carotid bruit. CHEST: Clear to auscultation bilaterally, in no distress. CARDIOVASCULAR: Regular rate and rhythm. Normal S1 and S2. No S3 or S4. No murmurs or rubs. ABDOMEN: Soft and nontender. Bowel sounds positive. EXTREMITIES: No edema. Warm distal extremities. SKIN: Dry and intact. HEENT: Pupils are equal, reactive to light. NEURO: Gross motor. No new deficits. Normal speech. CARDIOVASCULAR MEDICATIONS: Reviewed. Atorvastatin 40 mg at bedtime. LABORATORY DATA: Studies have been reviewed. Sodium 132, potassium 4.1, chloride 102, bicarbonate 24, BUN 17, creatinine 1.16, glucose 85. White blood cells 8.1, hemoglobin 8.2, and platelets 207. PT 14.6, PTT 30.2, INR 1.09. AST 14, ALT 9, alkaline phosphatase 58, total bilirubin 0.7. Telemetry, normal sinus rhythm. ASSESSMENT: A 68-year-old man presents with: 1. Symptomatic anemia. 2. 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 3. Carotid stenosis 50% to 69% to right ICA by carotid Doppler. 4. 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 5. History of deep venous thrombosis, on chronic long-term anticoagulation with warfarin with no recent compliance with followup INR or followup physician visits. 6. Dyslipidemia. 7. Iron deficiency anemia in the setting of Miller's esophagus, colon polyps, status post biopsies and nonbleeding ulcer. RECOMMENDATIONS: 1. Atorvastatin 40 mg at bedtime. Assess tolerance as outpatient and consider further up titration to highest tolerated potency given evidence of carotid disease. 2. Once okay with GI, rechallenge with warfarin for history of DVT and multiple multifocal CVA. 3. As outpatient, consider further workup, which may include angiography for carotid disease and further discussions for candidacy for carotid endarterectomy versus carotid artery stenting. Given the recent anemia and GI findings and lack of clarity at this point if he would tolerate rechallenge with antiplatelets/anticoagulation, would hold off on carotid interventions to outpatient physician. I have provided Gabbie with my office contact information and have encouraged him to make an appointment for further workup. I have also discussed the importance of close followup and regular INR checks should he resume warfarin. 4. He is also instructed to follow up with primary doctor and GI. MD BAR Vergara/OSKARL /[id number]
[2018-12-22 12:22] VITALS: BP 117/58
--- NOTE | 2018-12-22 13:07 | NUR ---
IMM EXPLAINED TO PT, SIGNED BY PT AND PLACED IN CHART COPY TO PT IN CARE TRANSITIONS FOLDER
[2018-12-22] MEDS ORDERED: ONDANSETRON HCL 4 MG ORAL DISINTEGRATING TAB PO PRN (15:30)
--- NOTE | 2018-12-22 15:30 | NUR ---
PIV removed with tip intact. no c/o pain or SOB. escorted to front lobby entrance where picked up in private auto. transferred into auto safely. all personal belongings with , RX and d/c instructions with patient at time of d/c.
--- NOTE | 2018-12-23 01:39 | Discharge Summary ---
FINAL DISCHARGE DIAGNOSES: 1. Syncopal episode concerning for underlying anemia, now resolved. 2. Status post EGD showed no evidence of any bleeding. 3. Anemia, status post blood transfusion. CONSULTANTS: Cardiology and GI. PHYSICAL EXAMINATION: VITAL SIGNS: Temperature 97.9, pulse 65, respiratory rate is 18, blood pressure is 117/58, pulse ox 99% on room air. LABS: White count 8.1, hemoglobin 8.2, hematocrit is 27, and platelets of 207. Coagulation; PT 14, INR 1. Chemistry; sodium 132, potassium 4.1, chloride 103, bicarb 24, anion gap of 10, creatinine is 1.1, calcium is 8.5, iron saturation 4%. LFTs within normal range. Troponins were negative x3 folic acid 5.1, vitamin B12 of 269. Urinalysis, negative. Microbiology, none. IMAGING STUDIES: Chest x-ray, no evidence of acute disease. Hyperinflation of the lungs may reflect chronic reactive airway disorder. CT cervical spine, no acute cervical spine abnormalities. CT brain, no acute intracranial abnormality seen. 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 CT chest shows a compression deformity T7, age indeterminate, but very mild. There are some right lower lobe areas of nodularity. Could be underlying atelectasis. We will recommend chest CT in 3 months. Mild emphysema seen. There is also a 3 cm AAA at the aortic bifurcation and recommend outpatient followup and close surveillance due to the size. Carotid ultrasound shows some evidence of 50% to 65% stenosis, but no intervention needed at this time. CT abdomen and pelvis essentially showed large hiatal hernia. HOSPITAL COURSE: A 68-year-old male, who came into the ED with underlying syncopal episode. The patient was found to be anemic and GI was consulted. The patient underwent an EGD with biopsies performed as well as colonoscopy with polypectomy that was snared. There is no evidence of any active bleeding. The patient was advised to follow up as an outpatient with GI for pathology reports. The patient verbalized understanding. The patient was on warfarin anticoagulation due to a history of CVA. In further discussion with the automobile service advisor, it was felt that the patient should hold his anticoagulation warfarin until he is seen in his office early next week hopefully by Tuesday or Tuesday for close evaluation and re-initiation of warfarin as well as INR checks. I checked with the automobile service advisor now with his plan of care. Family understood the plan of care from the automobile service advisor as well this morning. No other issues at this time. The patient and the family verbalized understanding and agreed with plan of care. The patient also has symptomatic anemia as well. EGD was concerning for underlying Miller's esophagus. The patient had a carotid ultrasound, which showed stenosis of 50% to 65% and Cardiology recommends outpatient followup in his office for further evaluation and management. The patient has been cleared by GI and Cardiology for discharge home. On discharge, vital signs stable, labs being stable. The patient seen, evaluated, examined thoroughly on the day of discharge. No other complaints. The patient verbalized understanding and agrees with plan of care to follow up as an outpatient with the primary care physician in 1 week and GI and Cardiology in 1 week time. The patient was advised to follow up with Cardiology early next week for INR check as per recommendations by Cardiology. DISPOSITION: To home. CONDITION: Stable. DIET: Heart healthy. In the event of any worsening symptoms, the patient was advised to come back to the ED for further evaluation. Once again, the patient's anticoagulation was stopped due to Cardiology recommendations and will be re-initiated early next week once the family visits Dr. Martinez's Cardiology office and schedule. At that time, he will adjust his warfarin accordingly and he will monitor very closely. The patient has been cleared by both GI and Cardiology. MD IVELISSE Retana/OSKARL /[id number]
--- NOTE | 2018-12-23 04:20 | Discharge Summary ---
ADDENDUM: Family understood the plan of care from Cardiology to hold on warfarin anticoagulation. They understand the risks involved on holding anticoagulation. The patient has a history of CVA in the past. Also has a history of GI bleed. At this time, it is felt to hold the warfarin for now until they will follow up with Cardiology early next week for INR checks and re-initiation. This was reiterated with the detention attendant and the family understood the plan of care from the detention attendant as well. MD IVELISSE Retana/MODL /[id number]
[2018-12-23] MEDS ORDERED: PANTOPRAZOLE SOD 40 MG TABEC PO SCH (07:30)
== END 2018-12-22 15:29 | disposition home or self-care (01) | DRG 812 ==
LOC: ER 09:52 → ERHOLD 11:56 → MED/SURG 12:29
PROVIDERS: ADMIT Internal Medicine; ATTEND Internal Medicine
PROC: 0DBK8ZZ Excision of Ascending Colon, Via Natural or Artificial Opening Endoscopic (ICD-10-PCS; principal; 2018-12-18)
PROC: 0DBL8ZZ Excision of Transverse Colon, Via Natural or Artificial Opening Endoscopic (ICD-10-PCS; 2018-12-18)
PROC: 0DBN8ZZ Excision of Sigmoid Colon, Via Natural or Artificial Opening Endoscopic (ICD-10-PCS; 2018-12-18)
PROC: 30233N1 Transfusion of Nonautologous Red Blood Cells into Peripheral Vein, Percutaneous Approach (ICD-10-PCS; 2018-12-18)
PROC: 30233K1 Transfusion of Nonautologous Frozen Plasma into Peripheral Vein, Percutaneous Approach (ICD-10-PCS; 2018-12-19)
DX: D50.0 Iron deficiency anemia secondary to blood loss (chronic) (principal); K63.5 Polyp of colon; Z86.73 Personal history of transient ischemic attack (TIA), and cerebral infarction without residual deficits; Z79.01 Long term (current) use of anticoagulants; E78.5 Hyperlipidemia, unspecified
CPT/HCPCS: 36415; 43239; 45378; 45385; 70450; 71046; 71250; 72125; 74176; 80048; 80053; 80061; 81001; 82550; 82553; 82607; 82746; 83540; 83735; 83880; 84443; 84466; 84484; 85014; 85018; 85025; 85379; 85610; 85730; 86850; 86900; 86920; 88305; 88312; 93005; 93306; 93880; 99284; J2001; J2250; J3411; J3420; J7030; J7050; P9016; P9017

== ENCOUNTER 2019-01-26 07:10 | Inpatient (IN) | payer MEDICARE ==
[2019-01-24 12:11] LABS: BASOPHILS # (AUTO) 0.1 (0.0-0.1); BASOPHILS % 0.8 % (0.0-1.0); EOSINOPHILS # (AUTO) 0.1 (0.0-0.4); EOSINOPHILS % 1.7 % (0.0-6.0); HEMATOCRIT 49.6 % (38.2-49.6); HEMOGLOBIN 14.2 g/dL (14.0-18.0); LYMPHOCYTES # (AUTO) 1.5 (1.0-3.2); LYMPHOCYTES % 19.7 % (18.0-39.1); MEAN CORPUSCULAR HEMOGLOBIN 24.1 pg (28-32); MEAN CORPUSCULAR HGB CONC 28.6 g/dL (31-35); MEAN CORPUSCULAR VOLUME 84.4 fL (81-99); MONOCYTES # (AUTO) 0.5 (0.2-0.8); MONOCYTES % 6.5 % (4.4-11.3); NEUTROPHILS # (AUTO) 5.3 (2.1-6.9); PLATELET COUNT 192 x10e3/uL (140-360); RED BLOOD COUNT 5.88 x10e6/uL (4.3-5.7); RED CELL DISTRIBUTION WIDTH 24.5 % (11.7-14.4)
[2019-01-24 12:24] LABS: INR 0.97; PROTHROMBIN TIME 13.4 seconds (11.9-14.5)
[2019-01-24 12:25] LABS: PARTIAL THROMBOPLASTIN TIME 30.5 seconds (23.8-35.5)
--- NOTE | 2019-01-24 12:29 | Diagnostic Imaging Report ---
EXAMINATION: PA and lateral views of the chest. COMPARISON: None CLINICAL HISTORY: Preoperative study for peripheral arteriogram DISCUSSION: Lungs are well-inflated and without focal airspace consolidation, pleural effusion, or pneumothorax. Right lower lobe juxtadiaphragmatic opacity with architectural distortion is seen to better advantage on comparison CT. Tortuous thoracic aorta with atherosclerotic calcification. Middle mediastinal mass with air-fluid level compatible with a hiatal hernia is again noted. No acute osseous abnormality. Stable anterior compression deformity of T7. IMPRESSION: No acute cardiopulmonary abnormalities. Refer to CT chest 12/19/2018 for description of chronic findings. Signed by: Dr. Boogie Lang M.D. on 01/24/2019 12:26 PM
[2019-01-24 12:31] LABS: ALBUMIN 3.8 g/dL (3.5-5.0); ALBUMIN/GLOBULIN RATIO 0.9 (0.8-2.0); ANION GAP 13.5 mmol/L (8-16); CALCIUM 10.2 mg/dL (8.4-10.2); CREATININE, SERUM 1.62 mg/dL (0.72-1.25); POTASSIUM 5.5 mmol/L (3.5-5.1)
--- NOTE | 2019-01-24 13:30 | NUR ---
Crys Marc RN with Dr. Hall's office notified of elevated potassium 5.5 and creatinine 1.62 via phone.
--- NOTE | 2019-01-24 13:45 | NUR ---
Received call back from Crys Chang RN. Crys Forbes RN stated Dr. Hall aware and no new orders at this time. Crys Gu RN stated Dr. Hall will give orders for patient on day of procedure.
[~2019-01-26] VITALS: Ht 167.6 cm; Wt 77.6 kg
[2019-01-26] VITALS (13 sets, daily range): BP systolic 128–184; BP diastolic 71–102
[~2019-01-26 07:10] MED LIST: ELIQUIS PO; FERROUS SULFAT325 M1 PO; FOLIC ACID1 MG PO; PANTOPRAZOLE SO40 MG PO; PRAVASTATIN SOD40 MG PO; TYLENOL WITH C1 EACH PO; WARFARIN SODIUM10 MG PO
[2019-01-26] MEDS ORDERED: HEPARIN SOD/SOD CHLORIDE 2,000 ML ONE (08:55)
[2019-01-26] MEDS ORDERED: MIDAZOLAM HCL 2 MG/2 ML VIAL ONE ×3 (08:55→10:46)
[2019-01-26] MEDS ORDERED: FENTANYL CITRATE/PF 100MCG/2 ML INJ ONE ×3 (08:55→10:46)
[2019-01-26] MEDS ORDERED: LIDOCAINE HCL 2% LOCAL 20 ML VIAL ONE (08:55)
[2019-01-26] MEDS ORDERED: SODIUM CHLORIDE 0.9% 1000ML 1,000 ML ONE ×2 (08:55→10:48)
[2019-01-26] MEDS ORDERED: IOPAMIDOL 300MG/ML 100 ML INFUS..BTL IV ONE ×2 (08:55→09:33)
[2019-01-26] MEDS ORDERED: HEPARIN SOD/SOD CHLORIDE 1,000 ML ONE (10:02)
--- NOTE | 2019-01-26 11:15 | NUR ---
1115 Received pt from Natalie Rodríguez .Identiferx2. SFA fix Dr Hall Pt has venous ulcer to left inner aspect of ankle greater that 7cm circumference.Dressing removed gently Corinne states unable to care for site with supplies at home. Redressed with telfa 4x4 and kerlix and light coban wrap to use non tape per family preference. PPx4 Dp/Pt. Left foot still patel in color Md aware.Pt received in blender laborer procedure with 125mg Fentanyl and 5 versed. 500cc Ns bolus and infusing via dial a flow at 100cchr.Abdomen soft and non tender Voided clear urine qs. Flat till 330pm. Rt Mynx dressing with ita ooze on Kaila Patch and reported off has not increased. [address] Hall for pain med as per request severe left leg pain. 1151 Received verbal order via phone pt can have Morphine Sulfate 4mg q4hr prn. Phoned report to Vicki PATE and have medicated pt on transfer. With adequate relief. 1315 Transfered to Rm 186 Handoff completed.Corinne ()was there on transfer here cell 1330 Left bedside with RN in room bed in low position and side rails up ,call light at bedside.Report given to tele room also.No gross issues pain pallor pressure or dysrhythmia. Rt Minx dressing intact PPx4 Doppler and strong.Aware of plan of care and down time till 1530pm. Gave copies of Dr Hall's peripheral diagram and mynx closure wallet card to . ds/rn
[2019-01-26] MEDS ORDERED: MORPHINE SULFATE INJ 4 MG/ML INJ 1ML ONE (12:51)
--- NOTE | 2019-01-26 12:54 | NUR ---
[address] Hall received order for left leg pain severe post procedure. 4mg Morphine ivp slowly. Vs remain stable awaiting tele box. at evonne called report to Vicki Estrada nurse received pt in Rm 186. No gross issues pain, pallor, pressure or dysrhythmia.Rt Mynx site intact. Denies pain at this time 1305 with resolution with morphine sulfate 4mg ivp ds/rn
--- NOTE | 2019-01-26 13:35 | NUR ---
Pt in room resting at this time. Facial grimacing and rapid breathing presented intermittently due to pain in LLE. Resp WNL. A&O. at bedside. IV patent no redness or swelling to insertion site. Pt is to remain on bedrest till 1529, pt aware of bedrest. IV fluids being administered at this time. Call light within reach, bed in lowest position.
[2019-01-26] MEDS ORDERED: MORPHINE SULFATE 2 MG/ML SYR 1ML IV PRN (14:00)
[2019-01-26] MEDS ORDERED: HYDRALAZINE HCL 20 MG/ML VIAL IV PRN (14:00)
[2019-01-26] MEDS: MORPHINE SULFATE INJ 4 MG/ML INJ 1ML IV PRN ×2 (16:09→21:42)
--- NOTE | 2019-01-26 16:58 | Operative Report ---
DATE OF PROCEDURE: 01/26/2019 SURGEON: Boogie Hall MD PROCEDURES: 1. Atherectomy of the left superficial femoral artery. 2. Peripheral angiogram second order of the left leg. 3. Angioplasty of the left superficial femoral artery with a drug-eluting balloon. INDICATION: 1. Nonhealing ulcer to left leg. 2. Severe peripheral vascular disease. TECHNIQUE: The right groin was draped and prepped in the usual fashion. The area was anesthetized with lidocaine. Standard Seldinger technique was used to place a 6-[place]ore[place] sheath into the right femoral artery without difficulty. An Omni Flush catheter was used to perform an aortogram. An internal mammary artery catheter was then placed in the left external iliac artery from the right common femoral artery and selective injections of the left leg were obtained. The existing 6-[place]orese sheath was then exchanged for a long Destination sheath, which was placed through the right femoral artery into the left external iliac artery. The patient was bolused with 10,000 units of heparin. An Advantage 0.35 Glidewire was used in combination with a support catheter to cross the area of 100% occlusion in the left SFA. The occlusion was then ballooned with a 4.0 x 150 mm balloon up to 8 atmospheres for 1 minute. Atherectomy was then done with the [employer] atherectomy device. A 150 cm x 5.0 drug-eluting balloon was then inflated for 3 minutes. There was about a 10% residual stenosis. There were no complications. There was good three-vessel runoff. RESULTS: 1. Abdominal aorta had no aneurysm and no dissection. 2. 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 3. The left leg demonstrated a patent common iliac artery, internal iliac artery, external iliac artery, and profunda femoral artery. There was 100% occlusion of the mid superficial femoral artery. The popliteal vessel then reconstituted briskly by collaterals and there was three-vessel runoff. CONCLUSION: Successful atherectomy and angioplasty of left superficial femoral artery with a drug-eluting balloon. Boogie Hall MD DSH/MODL /[id number]
[2019-01-26] MEDS ORDERED: FENTANYL 25 MCG/HR PATCH TOP SCH (18:00)
--- NOTE | 2019-01-26 20:15 | NUR ---
Received report from previous nurse, call-light within reach, patient resting in bed, no acute distress noted, in stable condition, will continue to monitor.
[2019-01-27] VITALS (11 sets, daily range): BP systolic 109–183; BP diastolic 59–91
[2019-01-27 04:59] LABS: HEMATOCRIT 39.3 % (38.2-49.6); HEMOGLOBIN 11.9 g/dL (14.0-18.0); MEAN CORPUSCULAR HGB CONC 30.3 g/dL (31-35); MEAN CORPUSCULAR VOLUME 82.6 fL (81-99); PLATELET COUNT 128 x10e3/uL (140-360); RED BLOOD COUNT 4.76 x10e6/uL (4.3-5.7); RED CELL DISTRIBUTION WIDTH 23.9 % (11.7-14.4)
[2019-01-27 05:17] LABS: ANION GAP 10.9 mmol/L (8-16); CALCIUM 8.7 mg/dL (8.4-10.2); CHOL/HDL RATIO 3.3 (3.9-4.7); CREATININE, SERUM 1.21 mg/dL (0.72-1.25); POTASSIUM 3.9 mmol/L (3.5-5.1)
[2019-01-27] MEDS: CLOPIDOGREL BISULFATE 75 MG TAB PO SCH (10:01)
[2019-01-27] MEDS ORDERED: HYDROCODONE/APAP 5MG-325MG TAB PO PRN (12:30)
--- NOTE | 2019-01-27 15:10 | NUR ---
Nutrition Screen Note RD Recommendation for Physician: Continue diet as ordered Plan of Care: RD following, monitoring for tolerance and adequacy Nutrition reason for involvement: Nutrition Risk Trigger - MST Primary Diagnose(s):PAD PMH: CKD stage 2 Ht:70 in Wt:180lb BMI:25.9 kg/m2 IBW:166lb RD Assessment: (01/27/2019) Chart reviewed. Labs and meds reviewed. Initial encounter with patient. Pt denies any N,V,D now but had one episode. The Pt does not have any difficulty chewing or swallowing. Pt states that he is 70" tall. Pt did not want to continue with the interview because he felt that the RD does not need so much information. Pt stated that the information should be in the chart. Current Diet: Cardiac diet Malnutrition Evaluation (01/27/2019) The patient does not meet criteria for a specified degree of malnutrition at this time. Will re-evaluate at follow-up as appropriate. Diet Education Needs Assessment: Diet education not indicated. Nutrition Care Level: low Signed: Malvin Ferro RD, LD, [facility]
--- NOTE | 2019-01-27 18:31 | NUR ---
Pt in room resting, at bedside. No c/o pain to BLE. IV to R hand patent, saline lock. Pt c/o nausea/vomiting. No vomiting observed, pt stated "I am just dry heaving." A&O, able to ambulate. Resp WNL. Call light within reach, bed locked and in lowest position.
--- NOTE | 2019-01-27 19:00 | NUR ---
Received bedside shift report from day shift RN. Patient is laying in bed, no distress. Bed set low, wheels lock, side rails up x2 and call light within reach.
--- NOTE | 2019-01-27 21:00 | NUR ---
Patient's spouse stated her is agitated which isn't his normal self and stated the opioid is making him this way. Spouse instructed RN not to give opioid but Tylenol for the pain.
[2019-01-27] MEDS ORDERED: ACETAMINOPHEN 325 MG TAB PO PRN (21:30)
[2019-01-28] VITALS (7 sets, daily range): BP systolic 136–174; BP diastolic 73–92
[2019-01-28] MEDS: CLOPIDOGREL BISULFATE 75 MG TAB PO SCH (09:24)
--- NOTE | 2019-01-28 10:48 | NUR ---
SPOKE W BEDSIDE NURSE; JAMES, REGARDING DC PLAN. STATES THE PT HAD A REACTION TO HIS PAIN MEDS. STATES DR. MAY ORDERED PT TO EVAL THE PT AND AND A WOUND CARE CONSULT. LALO WOULD LIKE PT TO HAVE WOUND CARE RECOMMENDATION AND FOLLOW UP POST DC PRIOR TO PT'S DC. STATES PT WAS NOT ABLE TO AMBULATE. DISCUSSED INPT. STATES HE WILL CHANGE TO INPT PER DR. MAY IF ORDER RECEIVED.
--- NOTE | 2019-01-28 13:48 | NUR ---
Received pt at this time from [facility]. Pt is aox3 and able to verbalize needs. Denies any pain at this time. Pt is ambulatory. Breaths are even and unlabored.
--- NOTE | 2019-01-28 19:03 | NUR ---
RECEIVED REPORT FROM PREVIOUS NURSE. CALL LIGHT WITHIN REACH. PATIENT IN BED. AT BEDSIDE
[2019-01-29] VITALS (7 sets, daily range): BP systolic 13–153; BP diastolic 76–80
--- NOTE | 2019-01-29 07:08 | NUR ---
Gave report to oncoming nurse. Patient is asleep in bed. Call light within reach. at bedside
[2019-01-29] MEDS ORDERED: PANTOPRAZOLE SOD 40 MG TABEC PO SCH (07:30)
[2019-01-29] MEDS: CLOPIDOGREL BISULFATE 75 MG TAB PO SCH (08:25)
[2019-01-29] MEDS ORDERED: FOLIC ACID 1 MG TAB PO SCH (09:00)
[2019-01-29] MEDS ORDERED: FERROUS SULFATE 325 MG TAB PO SCH (09:00)
[2019-01-29] MEDS ORDERED: PLAVIX75 MG PO ×2 (15:45→16:35)
--- NOTE | 2019-01-29 15:51 | NUR ---
WOUND CARE CONSULTATION: INITIAL EVALUATION Patient admitted with severe leg pain to [facility]. DX: PAD LABS: WBC70.1 HGB11.9 HCT39.3 GLU84 PATIENT VISIT Patient AAOX4. calm, cooperative. Ramesh Score 17. S/P Atherectomy of left superficial femoral artery, S/P Peripheral Angiogram, & Angioplasty of left superficial femoral artery with drug-eluting balloon. As a result patient verbalizes increased sensation to LLE making dressing changes more challenging. Unable to tolerate touch well. Area irrigated with NSS to loosen old dressing and gently removed. LLE Medial Ankle - partial thickness, irregular ulceration with 70% granulation and 30% slough/fibrin present to wound base. Wound measurements and additional description of wound documented on Wound Assessment area and is linked to this note. Family member at bedside verbalizes limited funds and physician visits after discharge are not an option for them as they are unable to afford co-pays. States they are going to manage wound at home without assistance. They understand risks that comes with unsupervised wound treatments. 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 Dr. Hall at bedside and aware of patient situation. Wound treatment geared toward the most aggressive treatment possible with their budget in mind and patient ability to tolerate dressing changes. Reviewed products to be used with patient and family member. States able to find products via the internet. Provided 1wk of product for dressing changes at home while she orders wc products for home dressing changes. Patient states he will visit PCP should wound begin to worsen. Recommended treatment can be used safely until full closure of wound. Reviewed S&S of infection and verbalized understanding. Written instructions for dressing changes provided. IMPRESSION: Left Foot Medial Malleolus- non-healing VSU. RECOMMENDATION: Left Foot - Medial Malleolus - VSU. - Cleanse wound with normal saline and 4x4 gauze. - Apply Silvasorb Gel and then Adaptic layer then Cover with staggered 4x4 gauze and wrap with Kerlix roll daily. Thank you for consulting with Wound Care. Addendum: 01/29/19 at 1607 by José Miguel Bhardwaj RN Amended: Links added.
--- NOTE | 2019-01-29 17:00 | NUR ---
patient alert and oriented with at the bedside. discharge instructions given at this time, both verbalized understanding. IV discontinued, catheter in tact and pressure dressing applied. patient to be wheeled out to personal auto for to drive home.
--- NOTE | 2019-01-29 17:07 | NUR ---
MET W THE PT AND SPOUSE PRIOR TO DC TO DISCUSS WOUND CARE. STATES THE WOUND CARE CLINIC CALLED AND STATED THEY HAD A $150 COPAY. PT STATES HE HAS NOT BEEN ABLE TO WORK AND IS NOT ABLE TO AFFORD THE COPAY. DISCUSSED HOME HEALTH. 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 INFORMED PT CM WILL F/U W THE WOUND CARE CLINIC IN THE AM TO VERIFY BENEFIT. CM VERIFIED CONTACT INFO. PT DISCHARGED HOME.
--- NOTE | 2019-01-30 00:43 | Discharge Summary ---
FINAL DIAGNOSES: 1. Atherosclerotic disease of the lower extremity. 2. Ischemia of the left foot. PROCEDURES PERFORMED: On the patient include: 1. Atherectomy of the left superficial femoral artery. 2. Percutaneous transluminal angioplasty of the left superficial femoral artery. 3. Peripheral angiogram. HOSPITAL COURSE: The patient has had a nonhealing ulcer on the medial malleolus of the left ankle. Angiogram was done demonstrating an occluded left superficial femoral artery. So, the left superficial femoral artery was opened with an atherectomy with minimal residual stenosis. The patient's pain in his left leg improved dramatically. The patient was seen by Wound Care and arrangements were made by the Wound Care consultants for the patient to do the dressing changes at home. The patient was given a prescription for Plavix. The patient was instructed to return to the office for followup in one week. MD ARIADNA PrajapatiH/MODL /[id number]
[2019-01-30] MEDS ORDERED: SILVER ANTIMICROBIAL WOUND GEL 45ML TP SCH (09:00)
--- NOTE | 2019-01-30 15:20 | NUR ---
F/U CALL TO THE WOUND CARE CENTER. STATES THE PT WOULD HAVE A $150 COPAY DUE TO THEIR INSURANCE PLAN. THE WOUND CARE CENTER IS CONSIDERED A SURGICAL CENTER UNDER THE MANAGED [employer] PLANS. NO F/U NEEDED.
== END 2019-01-29 17:07 | disposition home or self-care (01) | DRG 272 ==
LOC: CATH LAB 07:10 → CATH LAB V 12:17 → IMCU 13:34 → OBSVTOIN 01-28 10:53 → MED/SURG3 01-28 13:49
PROVIDERS: ADMIT Internal Medicine Cardiovascular Disease; ATTEND Internal Medicine Cardiovascular Disease
PROC: 04CL3ZZ Extirpation of Matter from Left Femoral Artery, Percutaneous Approach (ICD-10-PCS; principal; 2019-01-28)
PROC: 047L3Z1 Dilation of Left Femoral Artery using Drug-Coated Balloon, Percutaneous Approach (ICD-10-PCS; 2019-01-28)
PROC: B41D1ZZ Fluoroscopy of Aorta and Bilateral Lower Extremity Arteries using Low Osmolar Contrast (ICD-10-PCS; 2019-01-28)
DX: I70.223 Atherosclerosis of native arteries of extremities with rest pain, bilateral legs (principal); I70.25 Atherosclerosis of native arteries of other extremities with ulceration; L98.499 Non-pressure chronic ulcer of skin of other sites with unspecified severity; F17.210 Nicotine dependence, cigarettes, uncomplicated
CPT/HCPCS: 36247; 36415; 37225; 71046; 75625; 75710; 80048; 80053; 80061; 85007; 85025; 85027; 85610; 85730; C1725; C1760; C1769; C1887; G0378; J0360; J2001; J2250; J2270; J7030; Q9967

== ENCOUNTER 2021-08-26 06:07 | Inpatient (IN) | payer MEDICARE ==
[~2021-08-26] VITALS: Ht 177.8 cm; Wt 79.4 kg
[~2021-08-26 06:07] MED LIST changes: +PLAVIX75 MG PO
[2021-08-26 06:58] LABS: BASOPHILS # (AUTO) 0.1 (0.0-0.1); BASOPHILS % 0.7 % (0.0-1.0); HEMATOCRIT 52.6 % (38.2-49.6); HEMOGLOBIN 16.9 g/dL (14.0-18.0); LYMPHOCYTES # (AUTO) 2.1 (1.0-3.2); LYMPHOCYTES % 25.1 % (18.0-39.1); MEAN CORPUSCULAR HEMOGLOBIN 29.8 pg (28-32); MEAN CORPUSCULAR HGB CONC 32.1 g/dL (31-35); MEAN CORPUSCULAR VOLUME 92.8 fL (81-99); MONOCYTES # (AUTO) 0.7 (0.2-0.8); MONOCYTES % 8.2 % (4.4-11.3); NEUTROPHILS # (AUTO) 5.5 (2.1-6.9); NEUTROPHILS % 65.6 % (38.7-80.0); PLATELET COUNT 137 x10e3/uL (140-360); RED BLOOD COUNT 5.67 x10e6/uL (4.3-5.7); RED CELL DISTRIBUTION WIDTH 14.6 % (11.7-14.4)
[2021-08-26 07:04] LABS: INR 0.92; PROTHROMBIN TIME 13.1 seconds (11.9-14.5)
[2021-08-26 07:05] LABS: PARTIAL THROMBOPLASTIN TIME 29.4 seconds (23.8-35.5)
[2021-08-26 07:13] LABS: ANION GAP 14.5 mmol/L (8-16); CALCIUM 9.1 mg/dL (8.4-10.2); CREATININE, SERUM 1.91 mg/dL (0.72-1.25); POTASSIUM 4.5 mmol/L (3.5-5.1)
[2021-08-26 07:21] LABS: CREATINE KINASE MB 1.8 ng/mL (0-5.0)
[2021-08-26] MEDS ORDERED: SODIUM CHLORIDE 0.9% 1000ML 1,000 ML IV STA (07:47)
[2021-08-26 08:41] LABS: CLARITY,URINE CLEAR (CLEAR); COLOR,URINE YELLOW (YELLOW); KETONES,URINE NEGATIVE (NEGATIVE); LEUKOCYTE ESTERASE ,URINE NEGATIVE (NEGATIVE); NITRITE,URINE NEGATIVE (NEGATIVE); PROTEIN,URINE DIPSTICK NEGATIVE (NEGATIVE); URINE UROBILINOGEN 0.2 mg/dL (0.2 - 1)
[2021-08-26 08:55] LABS: BACTERIA,URINE FEW /HPF; EPITHELIAL CELLS,URINE FEW /LPF; RBC,URINE >50 /HPF (0-5); WBC,URINE (MAN) 0-5 /HPF (0-5)
[2021-08-26] MEDS ORDERED: ONDANSETRON HCL INJ 2MG/ML 2ML 2 MG/ML VIAL IV PRN (09:15)
[2021-08-26] MEDS ORDERED: SODIUM BICARBONATE 8.4% IV ONE (09:15)
[2021-08-26] MEDS ORDERED: HYDROCODONE/APAP 5MG-325MG TAB PO PRN (09:15)
[2021-08-26] MEDS ORDERED: SODIUM CHLORIDE 0.45% IV ONE (09:15)
[2021-08-26] MEDS ORDERED: HEPARIN 25,000 UNIT 1,200 UNIT in DEXTROSE 5% 250ML 250 ML IV SCH (09:30)
[2021-08-26] MEDS ORDERED: HEPARIN SOD (PORCINE) 5,000 UNIT/ML VIAL IV ONE (09:30)
[2021-08-26] MEDS ORDERED: HEPARIN 25,000 UNIT DRIP IV ONE (09:31)
[2021-08-26] MEDS ORDERED: ASPIRIN 81 MG ENTERIC COATED PO ONE (10:00)
[2021-08-26] MEDS ORDERED: HYDRALAZINE HCL 20 MG/ML VIAL IV PRN (13:00)
[2021-08-26] MEDS: AMLODIPINE BESYLATE 10 MG TAB PO SCH (13:29)
[2021-08-26] MEDS ORDERED: ACETAMINOPHEN 325 MG TAB PO PRN (13:45)
[2021-08-26] MEDS ORDERED: DOCUSATE SODIUM 100 MG CAP PO PRN (13:45)
[2021-08-26] MEDS ORDERED: ARICEPT5 MG PO (15:56)
[2021-08-26] MEDS ORDERED: ASPIRIN81 MG PO (15:56)
[2021-08-26] MEDS ORDERED: TRELEGY ELLIPT1 EACH (15:56)
[2021-08-26] MEDS ORDERED: ATORVASTATIN CA20 MG PO (15:56)
[2021-08-26 16:10] VITALS: BP 138/70
[2021-08-26 16:15] VITALS: BP 138/70
[2021-08-26] MEDS: HEPARIN 25,000 UNIT 1,200 UNIT in DEXTROSE 5% 250ML 250 ML IV SCH (16:15)
[2021-08-26 16:22] VITALS: BP 138/70
[2021-08-26 16:27] VITALS: BP 162/91
[2021-08-26 19:20] VITALS: BP 135/71
[2021-08-26 20:21] VITALS: BP 135/71
[2021-08-26] MEDS: ATORVASTATIN 40 MG TAB PO SCH (20:50)
[2021-08-27] VITALS (9 sets, daily range): BP systolic 122–143; BP diastolic 80–88
[2021-08-27] MEDS: SODIUM CHLORIDE 0.45% 2,000 ML IV SCH (06:03)
[2021-08-27 07:49] LABS: BASOPHILS # (AUTO) 0.1 (0.0-0.1); BASOPHILS % 1.2 % (0.0-1.0); EOSINOPHILS # (AUTO) 0.2 (0.0-0.4); EOSINOPHILS % 2.9 % (0.0-6.0); HEMOGLOBIN 16.5 g/dL (14.0-18.0); LYMPHOCYTES # (AUTO) 1.6 (1.0-3.2); LYMPHOCYTES % 26.2 % (18.0-39.1); MEAN CORPUSCULAR HEMOGLOBIN 30.4 pg (28-32); MEAN CORPUSCULAR HGB CONC 32.4 g/dL (31-35); MEAN CORPUSCULAR VOLUME 93.9 fL (81-99); MONOCYTES # (AUTO) 0.5 (0.2-0.8); MONOCYTES % 7.6 % (4.4-11.3); NEUTROPHILS # (AUTO) 3.7 (2.1-6.9); NEUTROPHILS % 61.9 % (38.7-80.0); PLATELET COUNT 127 x10e3/uL (140-360); RED BLOOD COUNT 5.43 x10e6/uL (4.3-5.7); RED CELL DISTRIBUTION WIDTH 14.3 % (11.7-14.4)
[2021-08-27 08:05] LABS: ALBUMIN 3.3 g/dL (3.5-5.0); ALBUMIN/GLOBULIN RATIO 0.9 (0.8-2.0); ANION GAP 11.5 mmol/L (8-16); CHOL/HDL RATIO 2.8 (3.9-4.7); CREATININE, SERUM 1.53 mg/dL (0.72-1.25); POTASSIUM 4.5 mmol/L (3.5-5.1)
[2021-08-27] MEDS: PANTOPRAZOLE SOD 40 MG TABEC PO SCH (08:54)
[2021-08-27] MEDS: FERROUS SULFATE 325 MG TAB PO SCH (08:54)
[2021-08-27] MEDS: AMLODIPINE BESYLATE 10 MG TAB PO SCH (08:55)
[2021-08-27] MEDS: NICOTINE 21 MG/EA PATCH TOP SCH (08:55)
[2021-08-27] MEDS: HEPARIN 25,000 UNIT 1,200 UNIT in DEXTROSE 5% 250ML 250 ML IV SCH (08:56)
[2021-08-27] MEDS ORDERED: ASPIRIN 81 MG CHEW TAB PO SCH (09:00)
[2021-08-27] MEDS: ATORVASTATIN 40 MG TAB PO SCH (21:00)
[2021-08-28] VITALS (28 sets, daily range): BP systolic 122–184; BP diastolic 71–99
[2021-08-28] MEDS: SODIUM CHLORIDE 0.45% 2,000 ML IV SCH (05:46)
[2021-08-28 06:47] LABS: ANION GAP 13.3 mmol/L (8-16); CREATININE, SERUM 1.48 mg/dL (0.72-1.25); POTASSIUM 4.3 mmol/L (3.5-5.1)
[2021-08-28] MEDS ORDERED: HEPARIN SOD (PORCINE) 1000 UNIT/ML 30ML ONE (06:52)
[2021-08-28] MEDS ORDERED: MIDAZOLAM HCL 2 MG/2 ML VIAL ONE ×2 (06:52→08:19)
[2021-08-28] MEDS ORDERED: NITROGLYCERIN/D5W 200 MCG/ML 250 ML ONE (06:53)
[2021-08-28] MEDS ORDERED: IOPAMIDOL 300MG/ML 100 ML INFUS..BTL IV ONE ×2 (06:53→08:35)
[2021-08-28] MEDS ORDERED: LIDOCAINE HCL 2% LOCAL 20 ML VIAL ONE ×3 (06:53→08:36)
[2021-08-28] MEDS ORDERED: FENTANYL CITRATE/PF 100MCG/2 ML INJ ONE (06:53)
[2021-08-28] MEDS ORDERED: HEPARIN SOD/SOD CHLORIDE 2,000 ML ONE (06:53)
[2021-08-28 07:08] LABS: CALCIUM 8.7 mg/dL (8.4-10.2)
[2021-08-28] MEDS: PANTOPRAZOLE SOD 40 MG TABEC PO SCH (07:30)
[2021-08-28] MEDS ORDERED: VERAPAMIL HCL 2.5 MG/ML 2 ML VIAL ONE (08:53)
[2021-08-28] MEDS ORDERED: SODIUM CHLORIDE 0.9% 1000ML 1,000 ML ONE (08:53)
[2021-08-28] MEDS: NICOTINE 21 MG/EA PATCH TOP SCH (09:00)
[2021-08-28] MEDS: AMLODIPINE BESYLATE 10 MG TAB PO SCH (09:00)
[2021-08-28] MEDS: FERROUS SULFATE 325 MG TAB PO SCH (09:00)
[2021-08-28] MEDS ORDERED: ASPIRIN 325 MG TAB ONE (09:26)
[2021-08-28] MEDS ORDERED: CLOPIDOGREL BISULFATE 75 MG TAB ONE (09:26)
[2021-08-28] MEDS ORDERED: HYDROCODONE/APAP 5MG-325MG TAB ONE (10:04)
[2021-08-28] MEDS ORDERED: ONDANSETRON HCL 4 MG ORAL DISINTEGRATING TAB PO PRN (18:15)
[2021-08-28] MEDS: ATORVASTATIN 40 MG TAB PO SCH (21:00)
[2021-08-29] MEDS: SODIUM CHLORIDE 0.45% 2,000 ML IV SCH (06:25)
[2021-08-29 06:28] VITALS: BP 115/59
[2021-08-29 07:02] LABS: BASOPHILS % 0.6 % (0.0-1.0); EOSINOPHILS # (AUTO) 0.2 (0.0-0.4); EOSINOPHILS % 2.6 % (0.0-6.0); HEMATOCRIT 50.7 % (38.2-49.6); HEMOGLOBIN 16.6 g/dL (14.0-18.0); LYMPHOCYTES # (AUTO) 1.6 (1.0-3.2); LYMPHOCYTES % 23.1 % (18.0-39.1); MEAN CORPUSCULAR HEMOGLOBIN 30.2 pg (28-32); MEAN CORPUSCULAR HGB CONC 32.7 g/dL (31-35); MEAN CORPUSCULAR VOLUME 92.3 fL (81-99); MONOCYTES # (AUTO) 0.5 (0.2-0.8); MONOCYTES % 7.3 % (4.4-11.3); NEUTROPHILS # (AUTO) 4.5 (2.1-6.9); NEUTROPHILS % 66.1 % (38.7-80.0); PLATELET COUNT 133 x10e3/uL (140-360); RED BLOOD COUNT 5.49 x10e6/uL (4.3-5.7); RED CELL DISTRIBUTION WIDTH 14.1 % (11.7-14.4)
[2021-08-29 07:25] LABS: ALBUMIN 3.5 g/dL (3.5-5.0); ANION GAP 13.3 mmol/L (8-16); CREATININE, SERUM 1.45 mg/dL (0.72-1.25); POTASSIUM 4.3 mmol/L (3.5-5.1)
[2021-08-29 08:14] VITALS: BP 115/59
[2021-08-29 08:16] VITALS: BP 132/73
[2021-08-29] MEDS: FERROUS SULFATE 325 MG TAB PO SCH (08:41)
[2021-08-29] MEDS: AMLODIPINE BESYLATE 10 MG TAB PO SCH (08:42)
[2021-08-29] MEDS: PANTOPRAZOLE SOD 40 MG TABEC PO SCH (08:46)
[2021-08-29] MEDS: NICOTINE 21 MG/EA PATCH TOP SCH (08:46)
[2021-08-29] MEDS ORDERED: ASPIRIN 325 MG TAB PO SCH (09:00)
[2021-08-29] MEDS ORDERED: ASPIRIN 81 MG CHEW TAB PO SCH (09:00)
[2021-08-29] MEDS ORDERED: CLOPIDOGREL BISULFATE 75 MG TAB PO SCH (09:00)
[2021-08-29 11:26] VITALS: BP 115/73
[2021-08-29] MEDS ORDERED: NORVASC10 MG PO (14:50)
[2021-08-29] MEDS ORDERED: NICODERM CQ1 EAC2 TOP (14:50)
== END 2021-08-29 15:40 | disposition home or self-care (01) | DRG 272 ==
LOC: ER 06:20 → ERHOLD 09:11 → MED/SURG 15:21
PROVIDERS: ADMIT Internal Medicine; ATTEND Internal Medicine
PROC: 047L3Z1 Dilation of Left Femoral Artery using Drug-Coated Balloon, Percutaneous Approach (ICD-10-PCS; principal; 2021-08-28)
PROC: 04CL3ZZ Extirpation of Matter from Left Femoral Artery, Percutaneous Approach (ICD-10-PCS; 2021-08-28)
PROC: 047N3Z1 Dilation of Left Popliteal Artery using Drug-Coated Balloon, Percutaneous Approach (ICD-10-PCS; 2021-08-28)
PROC: 04CN3ZZ Extirpation of Matter from Left Popliteal Artery, Percutaneous Approach (ICD-10-PCS; 2021-08-28)
DX: I70.222 Atherosclerosis of native arteries of extremities with rest pain, left leg (principal); N28.9 Disorder of kidney and ureter, unspecified; Z86.73 Personal history of transient ischemic attack (TIA), and cerebral infarction without residual deficits; Z86.718 Personal history of other venous thrombosis and embolism; Z79.01 Long term (current) use of anticoagulants; F17.210 Nicotine dependence, cigarettes, uncomplicated; E78.5 Hyperlipidemia, unspecified; N18.30 Chronic kidney disease, stage 3 unspecified; I12.9 Hypertensive chronic kidney disease with stage 1 through stage 4 chronic kidney disease, or unspecified chronic kidney disease; Z82.49 Family history of ischemic heart disease and other diseases of the circulatory system
CPT/HCPCS: 36415; 37225; 75710; 80048; 80053; 80061; 81001; 82550; 82553; 84484; 85025; 85610; 85730; 87086; 93005; 93880; 93926; 93971; 94799; 99152; 99153; 99284; C1724; C1725; C1760; C1769; C1887; C2623; J1644; J2001; J2250; J3010; J7030; Q9967; U0002

== ENCOUNTER 2021-08-31 13:42 | Inpatient (IN) | payer MEDICARE, OTHER ==
[2021-08-31] VITALS (13 sets, daily range): BP systolic 121–163; BP diastolic 74–124
[~2021-08-31] VITALS: Ht 177.8 cm; Wt 79.4 kg
[~2021-08-31 13:42] MED LIST changes: +ARICEPT5 MG PO; +ASPIRIN81 MG PO; +ATORVASTATIN CA20 MG PO; +NICODERM CQ1 EAC2 TOP; +NORVASC10 MG PO; +TRELEGY ELLIPT1 EACH
[2021-08-31] MEDS ORDERED: SODIUM CHLORIDE 0.9% 1000ML 1,000 ML IV STA (15:08)
[2021-08-31] MEDS ORDERED: LIDOCAINE HCL 2% LOCAL 20 ML VIAL ONE (15:32)
[2021-08-31] MEDS ORDERED: MIDAZOLAM HCL 2 MG/2 ML VIAL ONE ×4 (15:32→17:27)
[2021-08-31] MEDS ORDERED: FENTANYL CITRATE/PF 100MCG/2 ML INJ ONE ×2 (15:32→18:00)
[2021-08-31] MEDS ORDERED: IOPAMIDOL 300MG/ML 100 ML INFUS..BTL IV ONE (15:33)
[2021-08-31] MEDS ORDERED: HEPARIN SOD/SOD CHLORIDE 2,000 ML ONE (15:33)
[2021-08-31] MEDS ORDERED: SODIUM CHLORIDE 0.9% 1000ML 1,000 ML ONE (15:33)
[2021-08-31 15:38] LABS: BASOPHILS # (AUTO) 0.1 (0.0-0.1); BASOPHILS % 0.9 % (0.0-1.0); HEMATOCRIT 45.6 % (38.2-49.6); HEMOGLOBIN 14.6 g/dL (14.0-18.0); LYMPHOCYTES # (AUTO) 1.6 (1.0-3.2); LYMPHOCYTES % 19.7 % (18.0-39.1); MEAN CORPUSCULAR HEMOGLOBIN 30.2 pg (28-32); MEAN CORPUSCULAR VOLUME 94.4 fL (81-99); MONOCYTES # (AUTO) 0.7 (0.2-0.8); MONOCYTES % 8.8 % (4.4-11.3); NEUTROPHILS # (AUTO) 5.7 (2.1-6.9); NEUTROPHILS % 70.5 % (38.7-80.0); PLATELET COUNT 134 x10e3/uL (140-360); RED BLOOD COUNT 4.83 x10e6/uL (4.3-5.7); RED CELL DISTRIBUTION WIDTH 14.5 % (11.7-14.4)
[2021-08-31 15:51] LABS: INR 0.89; PARTIAL THROMBOPLASTIN TIME 26.4 seconds (23.8-35.5); PROTHROMBIN TIME 12.8 seconds (11.9-14.5)
[2021-08-31 15:57] LABS: ALBUMIN 3.5 g/dL (3.5-5.0); ANION GAP 7.9 mmol/L (8-16); CALCIUM 8.7 mg/dL (8.4-10.2); CREATININE, SERUM 1.61 mg/dL (0.72-1.25); POTASSIUM 3.9 mmol/L (3.5-5.1)
[2021-08-31] MEDS ORDERED: SODIUM CHLORIDE 0.9% 1000ML 1,000 ML IV SCH (16:00)
[2021-08-31] MEDS ORDERED: ONDANSETRON HCL INJ 2MG/ML 2ML 2 MG/ML VIAL IV PRN (16:00)
[2021-08-31 16:05] LABS: CREATINE KINASE MB 3.8 ng/mL (0-5.0)
[2021-08-31] MEDS ORDERED: LABETALOL HCL 5 MG/ML 20ML VIAL IV PRN (19:00)
[2021-08-31] MEDS ORDERED: HYDRALAZINE HCL 20 MG/ML VIAL IV PRN (19:00)
[2021-08-31] MEDS ORDERED: HEPARIN 25,000 UNIT 1,400 UNIT in DEXTROSE 5% 250ML 250 ML IV SCH (19:15)
[2021-08-31] MEDS ORDERED: Morphine 4mg Syringe 4 MG/ML INJ IV PRN (20:30)
[2021-08-31] MEDS ORDERED: Morphine 4mg Syringe 4 MG/ML INJ ONE (20:40)
[2021-08-31] MEDS ORDERED: ATORVASTATIN 40 MG TAB PO SCH (21:00)
[2021-08-31] MEDS ORDERED: ZOLPIDEM TARTRATE 5 MG TAB PO PRN (21:15)
[2021-09-01] VITALS (16 sets, daily range): BP systolic 112–200; BP diastolic 66–97
[2021-09-01] MEDS: HYDROMORPHONE 1MG/1ML INJ IV PRN ×2 (01:22→05:23)
[2021-09-01] MEDS ORDERED: ONDANSETRON HCL INJ 2MG/ML 2ML 2 MG/ML VIAL ONE (02:20)
[2021-09-01] MEDS ORDERED: HYDROCODONE/APAP 5MG-325MG TAB PO PRN (02:30)
[2021-09-01 04:11] LABS: BASOPHILS # (AUTO) 0.1 (0.0-0.1); BASOPHILS % 0.5 % (0.0-1.0); HEMATOCRIT 39.4 % (38.2-49.6); HEMOGLOBIN 12.8 g/dL (14.0-18.0); LYMPHOCYTES % 10.9 % (18.0-39.1); MEAN CORPUSCULAR HEMOGLOBIN 30.5 pg (28-32); MEAN CORPUSCULAR HGB CONC 32.5 g/dL (31-35); MEAN CORPUSCULAR VOLUME 93.8 fL (81-99); MONOCYTES # (AUTO) 0.5 (0.2-0.8); MONOCYTES % 5.2 % (4.4-11.3); NEUTROPHILS # (AUTO) 7.9 (2.1-6.9); NEUTROPHILS % 83.1 % (38.7-80.0); PLATELET COUNT 117 x10e3/uL (140-360); RED CELL DISTRIBUTION WIDTH 14.3 % (11.7-14.4)
[2021-09-01 04:41] LABS: ALBUMIN 3.1 g/dL (3.5-5.0); ALBUMIN/GLOBULIN RATIO 1.1 (0.8-2.0); ANION GAP 8.1 mmol/L (8-16); CALCIUM 8.2 mg/dL (8.4-10.2); CREATININE, SERUM 1.34 mg/dL (0.72-1.25); POTASSIUM 4.1 mmol/L (3.5-5.1)
[2021-09-01] MEDS ORDERED: MIDAZOLAM HCL 2 MG/2 ML VIAL ONE (07:51)
[2021-09-01] MEDS ORDERED: HEPARIN SOD (PORCINE) 1000 UNIT/ML 30ML ONE (07:51)
[2021-09-01] MEDS ORDERED: SODIUM CHLORIDE 0.9% 1000ML 1,000 ML ONE (07:52)
[2021-09-01] MEDS ORDERED: LIDOCAINE HCL 2% LOCAL 20 ML VIAL ONE (07:52)
[2021-09-01] MEDS ORDERED: HEPARIN SOD/SOD CHLORIDE 2,000 ML ONE (07:52)
[2021-09-01] MEDS ORDERED: NITROGLYCERIN/D5W 200 MCG/ML 250 ML ONE (07:52)
[2021-09-01] MEDS ORDERED: IOPAMIDOL 300MG/ML 100 ML INFUS..BTL IV ONE (07:52)
[2021-09-01] MEDS ORDERED: FENTANYL CITRATE/PF 100MCG/2 ML INJ ONE (07:52)
[2021-09-01] MEDS ORDERED: ATROPINE SULFATE 0.1 MG/ML 10ML SYR ONE (08:48)
[2021-09-01] MEDS ORDERED: LABETALOL HCL 20 ML ONE (08:54)
[2021-09-01] MEDS ORDERED: CLOPIDOGREL BISULFATE 75 MG TAB PO SCH (09:00)
[2021-09-01] MEDS ORDERED: AMLODIPINE BESYLATE 10 MG TAB PO SCH (09:00)
[2021-09-01] MEDS ORDERED: Morphine 4mg Syringe 4 MG/ML INJ ONE (09:05)
[2021-09-01] MEDS ORDERED: HYDROMORPHONE 1MG/1ML INJ ONE (09:28)
[2021-09-01 12:44] LABS: CREATINE KINASE MB 2.6 ng/mL (0-5.0)
[2021-09-01] MEDS ORDERED: ONDANSETRON HCL INJ 2MG/ML 2ML 2 MG/ML VIAL IV PRN (14:00)
== END 2021-09-01 20:30 | disposition short-term general hospital (02) | DRG 272 ==
LOC: ER 14:18 → ERHOLD 16:06 → IMCU 21:19
PROVIDERS: ADMIT Internal Medicine; ATTEND Internal Medicine
PROC: 04CN3ZZ Extirpation of Matter from Left Popliteal Artery, Percutaneous Approach (ICD-10-PCS; principal; 2021-08-31)
PROC: 04CQ3ZZ Extirpation of Matter from Left Anterior Tibial Artery, Percutaneous Approach (ICD-10-PCS; 2021-08-31)
PROC: 047N3EZ Dilation of Left Popliteal Artery with Two Intraluminal Devices, Percutaneous Approach (ICD-10-PCS; 2021-08-31)
PROC: 047L3DZ Dilation of Left Femoral Artery with Intraluminal Device, Percutaneous Approach (ICD-10-PCS; 2021-08-31)
PROC: 04CL3ZZ Extirpation of Matter from Left Femoral Artery, Percutaneous Approach (ICD-10-PCS; 2021-09-01)
DX: I70.222 Atherosclerosis of native arteries of extremities with rest pain, left leg (principal); Z20.822 Contact with and (suspected) exposure to COVID-19; Z86.73 Personal history of transient ischemic attack (TIA), and cerebral infarction without residual deficits; I10 Essential (primary) hypertension; E78.5 Hyperlipidemia, unspecified; I12.9 Hypertensive chronic kidney disease with stage 1 through stage 4 chronic kidney disease, or unspecified chronic kidney disease; N18.9 Chronic kidney disease, unspecified; F17.200 Nicotine dependence, unspecified, uncomplicated
CPT/HCPCS: 36415; 37186; 37230; 75710; 80053; 82550; 82553; 84484; 85025; 85610; 85730; 94799; 96360; 99152; 99153; 99284; C1725; C1757; C1766; C1769; C1887; J1170; J1644; J2001; J2250; J2270; J2405; J3010; J7030; Q9967; U0002

== ENCOUNTER 2021-10-08 06:07 | Emergency (ER) | payer MEDICARE, OTHER ==
[~2021-10-08] VITALS: Ht 177.8 cm; Wt 79.4 kg
[2021-10-08] MEDS ORDERED: Morphine 4mg Syringe 4 MG/ML INJ IV STA (06:23)
[2021-10-08] MEDS ORDERED: ONDANSETRON HCL INJ 2MG/ML 2ML 2 MG/ML VIAL IV STA (06:23)
[2021-10-08 06:46] LABS: BASOPHILS # (AUTO) 0.1 (0.0-0.1); BASOPHILS % 0.6 % (0.0-1.0); EOSINOPHILS # (AUTO) 0.2 (0.0-0.4); EOSINOPHILS % 1.8 % (0.0-6.0); HEMATOCRIT 40.9 % (38.2-49.6); HEMOGLOBIN 12.4 g/dL (14.0-18.0); LYMPHOCYTES # (AUTO) 2.2 (1.0-3.2); LYMPHOCYTES % 19.1 % (18.0-39.1); MEAN CORPUSCULAR HEMOGLOBIN 29.7 pg (28-32); MEAN CORPUSCULAR HGB CONC 30.3 g/dL (31-35); MEAN CORPUSCULAR VOLUME 98.1 fL (81-99); MONOCYTES # (AUTO) 0.8 (0.2-0.8); MONOCYTES % 6.7 % (4.4-11.3); NEUTROPHILS % 71.4 % (38.7-80.0); PLATELET COUNT 166 x10e3/uL (140-360); RED BLOOD COUNT 4.17 x10e6/uL (4.3-5.7); RED CELL DISTRIBUTION WIDTH 16.8 % (11.7-14.4)
[2021-10-08 07:02] LABS: INR 1.01
[2021-10-08 07:09] LABS: ALBUMIN 3.2 g/dL (3.5-5.0); ALBUMIN/GLOBULIN RATIO 0.8 (0.8-2.0); ANION GAP 17.5 mmol/L (8-16); CALCIUM 8.7 mg/dL (8.4-10.2); CREATININE, SERUM 1.33 mg/dL (0.72-1.25); POTASSIUM 3.5 mmol/L (3.5-5.1)
[2021-10-08] MEDS ORDERED: HEPARIN 25,000 UNIT DRIP IV ONE (07:40)
[2021-10-08] MEDS ORDERED: HEPARIN 25,000 UNIT 1,400 UNIT in DEXTROSE 5% 250ML 250 ML IV SCH (08:00)
== END 2021-10-08 08:00 | disposition home or self-care (01) ==
LOC: ER 06:20
DX: M79.605 Pain in left leg (principal); I74.3 Embolism and thrombosis of arteries of the lower extremities; I73.9 Peripheral vascular disease, unspecified; J44.9 Chronic obstructive pulmonary disease, unspecified; D64.9 Anemia, unspecified; Z20.822 Contact with and (suspected) exposure to COVID-19; Z86.73 Personal history of transient ischemic attack (TIA), and cerebral infarction without residual deficits; Z86.718 Personal history of other venous thrombosis and embolism
CPT/HCPCS: 36415; 80053; 85025; 85610; 85730; 93005; 93926; 99284; J2270; J2405; U0002

== ENCOUNTER 2021-10-20 20:38 | Emergency (ER) | payer MEDICARE, OTHER ==
[~2021-10-20] VITALS: Ht 177.8 cm; Wt 79.4 kg
[2021-10-20 22:35] LABS: BASOPHILS % 0.3 % (0.0-1.0); HEMATOCRIT 36.6 % (38.2-49.6); HEMOGLOBIN 11.1 g/dL (14.0-18.0); LYMPHOCYTES # (AUTO) 1.4 (1.0-3.2); LYMPHOCYTES % 16.1 % (18.0-39.1); MEAN CORPUSCULAR HEMOGLOBIN 30.5 pg (28-32); MEAN CORPUSCULAR HGB CONC 30.3 g/dL (31-35); MEAN CORPUSCULAR VOLUME 100.5 fL (81-99); MONOCYTES # (AUTO) 0.4 (0.2-0.8); NEUTROPHILS # (AUTO) 6.8 (2.1-6.9); NEUTROPHILS % 78.1 % (38.7-80.0); PLATELET COUNT 228 x10e3/uL (140-360); RED BLOOD COUNT 3.64 x10e6/uL (4.3-5.7); RED CELL DISTRIBUTION WIDTH 16.7 % (11.7-14.4)
[2021-10-20 22:44] LABS: INR 1.04; PROTHROMBIN TIME 14.5 seconds (11.9-14.5)
[2021-10-20 22:45] LABS: PARTIAL THROMBOPLASTIN TIME 17.8 seconds (23.8-35.5)
[2021-10-21 04:10] LABS: ALBUMIN 2.9 g/dL (3.5-5.0); ALBUMIN/GLOBULIN RATIO 0.8 (0.8-2.0); ANION GAP 18.5 mmol/L (8-16); CALCIUM 7.9 mg/dL (8.4-10.2); CREATININE, SERUM 1.72 mg/dL (0.72-1.25); POTASSIUM 4.5 mmol/L (3.5-5.1)
== END 2021-10-21 01:19 | disposition home or self-care (01) ==
LOC: ER 21:34
DX: S91.102A Unspecified open wound of left great toe without damage to nail, initial encounter (principal); S91.105A Unspecified open wound of left lesser toe(s) without damage to nail, initial encounter; W45.8XXA Other foreign body or object entering through skin, initial encounter; W27.8XXA Contact with other nonpowered hand tool, initial encounter; Y93.E8 Activity, other personal hygiene; Y92.008 Other place in unspecified non-institutional (private) residence as the place of occurrence of the external cause; J44.9 Chronic obstructive pulmonary disease, unspecified; Z20.822 Contact with and (suspected) exposure to COVID-19; Z86.73 Personal history of transient ischemic attack (TIA), and cerebral infarction without residual deficits
CPT/HCPCS: 12001; 36415; 80053; 85025; 85610; 85730; 99284; U0002

== ENCOUNTER 2021-11-02 12:36 | Emergency (ER) | payer MEDICARE, OTHER ==
[~2021-11-02] VITALS: Ht 177.8 cm; Wt 79.4 kg
[2021-11-02 12:58] LABS: BASOPHILS % 0.4 % (0.0-1.0); HEMATOCRIT 36.7 % (38.2-49.6); HEMOGLOBIN 11.1 g/dL (14.0-18.0); LYMPHOCYTES # (AUTO) 1.4 (1.0-3.2); LYMPHOCYTES % 12.8 % (18.0-39.1); MEAN CORPUSCULAR HEMOGLOBIN 30.2 pg (28-32); MEAN CORPUSCULAR HGB CONC 30.2 g/dL (31-35); MONOCYTES # (AUTO) 0.5 (0.2-0.8); MONOCYTES % 4.4 % (4.4-11.3); NEUTROPHILS # (AUTO) 9.2 (2.1-6.9); PLATELET COUNT 314 x10e3/uL (140-360); RED BLOOD COUNT 3.67 x10e6/uL (4.3-5.7); RED CELL DISTRIBUTION WIDTH 16.8 % (11.7-14.4)
[2021-11-02 13:06] LABS: INR 1.32; PROTHROMBIN TIME 17.5 seconds (11.9-14.5)
[2021-11-02 13:07] LABS: PARTIAL THROMBOPLASTIN TIME 30.4 seconds (23.8-35.5)
[2021-11-02 13:14] LABS: ALBUMIN 2.8 g/dL (3.5-5.0); ALBUMIN/GLOBULIN RATIO 0.7 (0.8-2.0); ANION GAP 12.8 mmol/L (8-16); CALCIUM 9.2 mg/dL (8.4-10.2); CREATININE, SERUM 1.43 mg/dL (0.72-1.25); POTASSIUM 4.8 mmol/L (3.5-5.1)
[2021-11-02 13:20] LABS: CREATINE KINASE MB 1.1 ng/mL (0-5.0)
[2021-11-02] MEDS ORDERED: MORPHINE SULFATE 15MG TAB CR PO ONE (13:30)
[2021-11-02] MEDS ORDERED: TIZANIDINE HCL2 M1 PO (15:29)
[2021-11-02 15:49] VITALS: BP 117/78
== END 2021-11-02 15:51 | disposition home or self-care (01) ==
LOC: ER 12:48
DX: M79.662 Pain in left lower leg (principal); I82.511 Chronic embolism and thrombosis of right femoral vein; G62.9 Polyneuropathy, unspecified; I73.9 Peripheral vascular disease, unspecified; E11.65 Type 2 diabetes mellitus with hyperglycemia; J44.9 Chronic obstructive pulmonary disease, unspecified; Z86.73 Personal history of transient ischemic attack (TIA), and cerebral infarction without residual deficits
CPT/HCPCS: 36415; 80053; 82550; 82553; 84484; 85025; 85610; 85730; 93925; 93970; 99284

== ENCOUNTER 2022-02-13 04:14 | Inpatient (IN) | payer MEDICARE, OTHER ==
[2022-02-13] VITALS (10 sets, daily range): BP systolic 92–128; BP diastolic 46–79
[~2022-02-13] VITALS: Ht 177.8 cm; Wt 79.4 kg
[~2022-02-13 04:14] MED LIST changes: +TIZANIDINE HCL2 M1 PO
[2022-02-13] MEDS ORDERED: SODIUM CHLORIDE 0.9% 1000ML 1,000 ML IV ONE ×3 (04:30→06:30)
[2022-02-13 04:40] LABS: BASOPHILS % 0.5 % (0.0-1.0); HEMATOCRIT 48.6 % (38.2-49.6); HEMOGLOBIN 14.5 g/dL (14.0-18.0); LYMPHOCYTES # (AUTO) 1.2 (1.0-3.2); LYMPHOCYTES % 19.7 % (18.0-39.1); MEAN CORPUSCULAR HEMOGLOBIN 29.1 pg (28-32); MEAN CORPUSCULAR HGB CONC 29.8 g/dL (31-35); MEAN CORPUSCULAR VOLUME 97.6 fL (81-99); MONOCYTES # (AUTO) 0.2 (0.2-0.8); MONOCYTES % 2.5 % (4.4-11.3); NEUTROPHILS # (AUTO) 4.7 (2.1-6.9); NEUTROPHILS % 77.1 % (38.7-80.0); PLATELET COUNT 208 x10e3/uL (140-360); RED BLOOD COUNT 4.98 x10e6/uL (4.3-5.7); RED CELL DISTRIBUTION WIDTH 15.6 % (11.7-14.4)
[2022-02-13 04:48] LABS: CLARITY,URINE CLEAR (CLEAR); COLOR,URINE YELLOW (YELLOW); KETONES,URINE NEGATIVE (NEGATIVE); LEUKOCYTE ESTERASE ,URINE TRACE (NEGATIVE); NITRITE,URINE NEGATIVE (NEGATIVE); PROTEIN,URINE DIPSTICK NEGATIVE (NEGATIVE); URINE UROBILINOGEN 0.2 mg/dL (0.2 - 1)
[2022-02-13 04:52] LABS: BACTERIA,URINE FEW /HPF; EPITHELIAL CELLS,URINE RARE /LPF; RBC,URINE 0-5 /HPF (0-5)
[2022-02-13 05:08] LABS: ALANINE AMINOTRANSFERASE 14 IU/L (0-55); ALBUMIN 2.9 g/dL (3.5-5.0); ALBUMIN/GLOBULIN RATIO 0.9 (0.8-2.0); ALKALINE PHOSPHATASE 64 IU/L (40-150); ANION GAP 14.6 mmol/L (8-16); BLOOD UREA NITROGEN 25 mg/dL (7-26); BUN/CREATININE RATIO 15 (6-25); CALCIUM 7.4 mg/dL (8.4-10.2); CARBON DIOXIDE 22 mmol/L (22-29); CHLORIDE 109 mmol/L (98-107); CREATINE KINASE 58 IU/L (30-200); CREATININE, SERUM 1.64 mg/dL (0.72-1.25); GLUCOSE 103 mg/dL (74-118); POTASSIUM 3.6 mmol/L (3.5-5.1); SODIUM 142 mmol/L (136-145)
[2022-02-13] MEDS ORDERED: SODIUM CHLORIDE 0.9% 250ML 250 ML ONE (05:38)
[2022-02-13] MEDS ORDERED: METHYLPREDNISOLONE SOD SUCC 125 MG/2ML VIAL IV ONE (06:15)
[2022-02-13] MEDS ORDERED: ALBUTEROL/IPRATROPIUM 3 ML NEB NEB ONE (06:15)
[2022-02-13] MEDS ORDERED: SODIUM CHLORIDE 0.9% 100 ML 100 ML IV ONE (06:30)
[2022-02-13] MEDS ORDERED: SODIUM CHLORIDE 0.9% 1000ML 1,000 ML ONE (06:37)
[2022-02-13] MEDS ORDERED: NOREPINEPHRINE 8 MG/D5W 250 ML 250 ML ONE (06:44)
[2022-02-13] MEDS: NOREPINEPHRINE 8 MG/D5W 250 ML 250 ML IV SCH (07:30)
[2022-02-13] MEDS ORDERED: ONDANSETRON HCL INJ 2MG/ML 2ML 2 MG/ML VIAL IV PRN (08:00)
[2022-02-13] MEDS ORDERED: SODIUM CHLORIDE 0.9% 1000ML 1,000 ML IV SCH (08:00)
[2022-02-13] MEDS ORDERED: ALBUTEROL/IPRATROPIUM 3 ML NEB NEB PRN (08:00)
[2022-02-13 08:56] LABS: INR 1.02; PROTHROMBIN TIME 14.3 seconds (11.9-14.5)
[2022-02-13 08:57] LABS: PARTIAL THROMBOPLASTIN TIME 22.4 seconds (23.8-35.5)
[2022-02-13] MEDS: LACTATED RINGER'S 1,000 ML INJ SCH ×3 (09:00→21:45)
[2022-02-13] MEDS: CLOPIDOGREL BISULFATE 75 MG TAB PO SCH (09:00)
[2022-02-13] MEDS: FOLIC ACID 1 MG TAB PO SCH (09:22)
[2022-02-13] MEDS: ASPIRIN 81 MG CHEW TAB PO SCH (09:22)
[2022-02-13] MEDS: PANTOPRAZOLE SOD 40 MG TABEC PO SCH (09:24)
[2022-02-13] MEDS ORDERED: LYRICA75 MG PO (15:17)
[2022-02-13] MEDS ORDERED: HYDROCODON-ACE1 EA11 PO (15:21)
[2022-02-13] MEDS ORDERED: CYMBALTA30 MG PO (15:21)
[2022-02-13] MEDS ORDERED: ELIQUIS5 MG PO (15:22)
[2022-02-13] MEDS: BUDESONIDE/FORMOTEROL 160/4.5MCG INHALER INH SCH (19:00)
[2022-02-13] MEDS ORDERED: HYDROCODONE/APAP 10MG-325MG TAB ONE (19:59)
[2022-02-13] MEDS: DONEPEZIL HCL 5 MG TAB PO SCH (20:01)
[2022-02-13] MEDS: HYDROCODONE/APAP 10MG-325MG TAB PO PRN (20:01)
[2022-02-13] MEDS: ATORVASTATIN 40 MG TAB PO SCH (20:01)
[2022-02-13] MEDS ORDERED: TIZANIDINE HCL4 MG (21:38)
[2022-02-13] MEDS: TIZANIDINE HCL 4 MG TAB PO PRN (21:50)
[2022-02-14] VITALS (19 sets, daily range): BP systolic 79–148; BP diastolic 42–97
[2022-02-14 06:45] LABS: BASOPHILS % 0.2 % (0.0-1.0); HEMATOCRIT 38.9 % (38.2-49.6); HEMOGLOBIN 11.9 g/dL (14.0-18.0); LYMPHOCYTES # (AUTO) 1.1 (1.0-3.2); LYMPHOCYTES % 5.7 % (18.0-39.1); MEAN CORPUSCULAR HEMOGLOBIN 29.6 pg (28-32); MEAN CORPUSCULAR HGB CONC 30.6 g/dL (31-35); MEAN CORPUSCULAR VOLUME 96.8 fL (81-99); MONOCYTES # (AUTO) 0.9 (0.2-0.8); MONOCYTES % 4.7 % (4.4-11.3); NEUTROPHILS # (AUTO) 16.6 (2.1-6.9); NEUTROPHILS % 88.6 % (38.7-80.0); PLATELET COUNT 139 x10e3/uL (140-360); RED BLOOD COUNT 4.02 x10e6/uL (4.3-5.7); RED CELL DISTRIBUTION WIDTH 15.6 % (11.7-14.4)
[2022-02-14] MEDS: BUDESONIDE/FORMOTEROL 160/4.5MCG INHALER INH SCH ×2 (07:00→19:00)
[2022-02-14 07:07] LABS: ALBUMIN 2.4 g/dL (3.5-5.0); ALBUMIN/GLOBULIN RATIO 0.8 (0.8-2.0); ANION GAP 10.4 mmol/L (8-16); CALCIUM 7.5 mg/dL (8.4-10.2); CREATININE, SERUM 1.24 mg/dL (0.72-1.25); POTASSIUM 4.4 mmol/L (3.5-5.1)
[2022-02-14] MEDS: NOREPINEPHRINE 8 MG/D5W 250 ML 250 ML IV SCH (07:26)
[2022-02-14] MEDS: PANTOPRAZOLE SOD 40 MG TABEC PO SCH (07:31)
[2022-02-14] MEDS: FOLIC ACID 1 MG TAB PO SCH (08:12)
[2022-02-14] MEDS: CLOPIDOGREL BISULFATE 75 MG TAB PO SCH (08:12)
[2022-02-14] MEDS: ASPIRIN 81 MG CHEW TAB PO SCH (08:12)
[2022-02-14] MEDS: HYDROCODONE/APAP 10MG-325MG TAB PO PRN ×2 (08:32→19:00)
[2022-02-14] MEDS ORDERED: NOREPINEPHRINE 8 MG/D5W 250 ML 250 ML IV PRN (08:45)
[2022-02-14 11:20] LABS: LYMPHOCYTES % (MANUAL) 6 % (19-48); MONOCYTES % (MANUAL) 6 % (3.4-9.0); NEUTROPHILS % (MANUAL) 88 % (40-74); PLATELET ESTIMATE ADEQUATE; PLATELET MORPHOLOGY COMMENT NORMAL; RBC MORPHOLOGY COMMENT NORMAL
[2022-02-14] MEDS ORDERED: ACETAMINOPHEN 325 MG TAB PO PRN (19:30)
[2022-02-14] MEDS: DONEPEZIL HCL 5 MG TAB PO SCH (20:47)
[2022-02-14] MEDS: ATORVASTATIN 40 MG TAB PO SCH (20:48)
[2022-02-14] MEDS: TIZANIDINE HCL 4 MG TAB PO PRN (22:55)
[2022-02-15] VITALS (8 sets, daily range): BP systolic 115–174; BP diastolic 62–97
[2022-02-15] MEDS ORDERED: SODIUM CHLORIDE 0.9% 250ML 250 ML ONE (05:46)
[2022-02-15 06:55] LABS: BASOPHILS % 0.2 % (0.0-1.0); HEMATOCRIT 44.2 % (38.2-49.6); HEMOGLOBIN 13.3 g/dL (14.0-18.0); LYMPHOCYTES # (AUTO) 1.4 (1.0-3.2); LYMPHOCYTES % 7.6 % (18.0-39.1); MEAN CORPUSCULAR HGB CONC 30.1 g/dL (31-35); MEAN CORPUSCULAR VOLUME 96.3 fL (81-99); MONOCYTES # (AUTO) 0.8 (0.2-0.8); MONOCYTES % 4.3 % (4.4-11.3); NEUTROPHILS # (AUTO) 15.6 (2.1-6.9); PLATELET COUNT 147 x10e3/uL (140-360); RED BLOOD COUNT 4.59 x10e6/uL (4.3-5.7); RED CELL DISTRIBUTION WIDTH 15.5 % (11.7-14.4)
[2022-02-15] MEDS: BUDESONIDE/FORMOTEROL 160/4.5MCG INHALER INH SCH ×2 (07:00→19:48)
[2022-02-15 07:12] LABS: ALBUMIN 2.6 g/dL (3.5-5.0); ALBUMIN/GLOBULIN RATIO 0.8 (0.8-2.0); ANION GAP 11.4 mmol/L (8-16); CALCIUM 8.4 mg/dL (8.4-10.2); CREATININE, SERUM 1.13 mg/dL (0.72-1.25); POTASSIUM 4.4 mmol/L (3.5-5.1)
[2022-02-15] MEDS: HYDROCODONE/APAP 10MG-325MG TAB PO PRN (07:32)
[2022-02-15] MEDS: ASPIRIN 81 MG CHEW TAB PO SCH (08:18)
[2022-02-15] MEDS: PANTOPRAZOLE SOD 40 MG TABEC PO SCH (08:18)
[2022-02-15] MEDS: FOLIC ACID 1 MG TAB PO SCH (08:18)
[2022-02-15] MEDS: CLOPIDOGREL BISULFATE 75 MG TAB PO SCH (08:18)
[2022-02-15] MEDS: DONEPEZIL HCL 5 MG TAB PO SCH (20:35)
[2022-02-15] MEDS: TIZANIDINE HCL 4 MG TAB PO PRN (20:35)
[2022-02-15] MEDS: ATORVASTATIN 40 MG TAB PO SCH (20:35)
[2022-02-16] VITALS (8 sets, daily range): BP systolic 115–152; BP diastolic 66–92
[2022-02-16] MEDS: AZITHROMYCIN 250 MG TAB PO SCH (05:20)
[2022-02-16 06:43] LABS: BASOPHILS % 0.2 % (0.0-1.0); HEMOGLOBIN 14.1 g/dL (14.0-18.0); LYMPHOCYTES % 6.1 % (18.0-39.1); MEAN CORPUSCULAR HEMOGLOBIN 28.9 pg (28-32); MEAN CORPUSCULAR HGB CONC 30.7 g/dL (31-35); MEAN CORPUSCULAR VOLUME 94.3 fL (81-99); MONOCYTES # (AUTO) 0.6 (0.2-0.8); MONOCYTES % 3.6 % (4.4-11.3); NEUTROPHILS # (AUTO) 14.1 (2.1-6.9); NEUTROPHILS % 89.4 % (38.7-80.0); PLATELET COUNT 167 x10e3/uL (140-360); RED BLOOD COUNT 4.88 x10e6/uL (4.3-5.7); RED CELL DISTRIBUTION WIDTH 15.2 % (11.7-14.4)
[2022-02-16] MEDS: BUDESONIDE/FORMOTEROL 160/4.5MCG INHALER INH SCH ×2 (06:58→19:00)
[2022-02-16 07:13] LABS: ALBUMIN 2.6 g/dL (3.5-5.0); ALBUMIN/GLOBULIN RATIO 0.7 (0.8-2.0); ANION GAP 12.2 mmol/L (8-16); CALCIUM 8.6 mg/dL (8.4-10.2); CREATININE, SERUM 1.12 mg/dL (0.72-1.25); POTASSIUM 4.2 mmol/L (3.5-5.1)
[2022-02-16] MEDS: PANTOPRAZOLE SOD 40 MG TABEC PO SCH (08:35)
[2022-02-16] MEDS: FOLIC ACID 1 MG TAB PO SCH (08:36)
[2022-02-16] MEDS: ASPIRIN 81 MG CHEW TAB PO SCH (08:36)
[2022-02-16] MEDS: CLOPIDOGREL BISULFATE 75 MG TAB PO SCH (08:36)
[2022-02-16] MEDS: DONEPEZIL HCL 5 MG TAB PO SCH (20:23)
[2022-02-16] MEDS: ATORVASTATIN 40 MG TAB PO SCH (20:24)
[2022-02-17] VITALS: BP 140/72
[2022-02-17 04:00] VITALS: BP 144/79
[2022-02-17] MEDS: AZITHROMYCIN 250 MG TAB PO SCH (05:21)
[2022-02-17] MEDS: BUDESONIDE/FORMOTEROL 160/4.5MCG INHALER INH SCH (08:45)
[2022-02-17] MEDS: FOLIC ACID 1 MG TAB PO SCH (09:02)
[2022-02-17] MEDS: CLOPIDOGREL BISULFATE 75 MG TAB PO SCH (09:03)
[2022-02-17] MEDS: PANTOPRAZOLE SOD 40 MG TABEC PO SCH (09:03)
[2022-02-17] MEDS: ASPIRIN 81 MG CHEW TAB PO SCH (09:03)
[2022-02-17] MEDS: HYDROCODONE/APAP 10MG-325MG TAB PO PRN (12:00)
[2022-02-17] MEDS ORDERED: ONDANSETRON HCL 4 MG ORAL DISINTEGRATING TAB PO PRN (13:15)
== END 2022-02-17 14:25 | disposition home or self-care (01) | DRG 871 ==
LOC: ER 04:18 → ERHOLD 08:01 → ICU 13:45 → MED/SURG3 02-14 21:13
PROVIDERS: ADMIT Internal Medicine; ATTEND Internal Medicine
PROC: 02HV33Z Insertion of Infusion Device into Superior Vena Cava, Percutaneous Approach (ICD-10-PCS; principal; 2022-02-13)
PROC: 3E04329 Introduction of Other Anti-infective into Central Vein, Percutaneous Approach (ICD-10-PCS; 2022-02-13)
DX: A41.9 Sepsis, unspecified organism (principal); J18.9 Pneumonia, unspecified organism; J96.01 Acute respiratory failure with hypoxia; N17.9 Acute kidney failure, unspecified; J44.0 Chronic obstructive pulmonary disease with (acute) lower respiratory infection; J44.9 Chronic obstructive pulmonary disease, unspecified; Z87.891 Personal history of nicotine dependence; Z90.49 Acquired absence of other specified parts of digestive tract; Z86.73 Personal history of transient ischemic attack (TIA), and cerebral infarction without residual deficits; Z20.822 Contact with and (suspected) exposure to COVID-19; F03.90 Unspecified dementia, unspecified severity, without behavioral disturbance, psychotic disturbance, mood disturbance, and anxiety; E11.51 Type 2 diabetes mellitus with diabetic peripheral angiopathy without gangrene; N18.30 Chronic kidney disease, stage 3 unspecified; E78.00 Pure hypercholesterolemia, unspecified; Z82.49 Family history of ischemic heart disease and other diseases of the circulatory system; Z95.820 Peripheral vascular angioplasty status with implants and grafts; R65.20 Severe sepsis without septic shock; K21.9 Gastro-esophageal reflux disease without esophagitis; D69.6 Thrombocytopenia, unspecified; I10 Essential (primary) hypertension; Z79.82 Long term (current) use of aspirin
CPT/HCPCS: 36415; 36555; 71045; 80053; 81001; 82550; 82553; 83605; 83735; 84484; 85025; 85610; 85730; 87040; 93005; 94640; 94664; 94799; 99251; 99284; J0456; J0696; J7030; J7050; J7121